=== PATIENT | female | born 1945 | race Caucasian/White ===

== ENCOUNTER 2021-12-06 09:31 | Outpatient (REF) | payer MEDICARE, SELFPAY ==
[2021-12-06 10:21] LABS: Basophils Percent Auto 0.4 % (0-2); Eosinophils Absolute Auto 0.2 X10*3/uL (0.0-0.4); Eosinophils Percent Auto 1.8 % (0-4); Hematocrit 43.8 % (37.0-47.0); Hemoglobin 14.7 g/dl (12.0-16.0); Imm Gran Abs Auto 0.02 X10*3/uL (0.00-0.03); Imm Gran Pct Auto 0.2 % (0.0-0.4); Lymphocytes Absolute Auto 3.9 X10*3/uL (1.2-4.9); Lymphocytes Percent Auto 43.5 % (20-40); MANUAL DIFF FLAG NO; Mean Corpuscular HGB Conc 33.6 g/dl (31.0-35.0); Mean Corpuscular Hemoglobin 31.4 pg (27.0-33.0); Mean Corpuscular Volume 93.6 fL (80.0-98.0); Mean Platelet Volume 10.8 fL (9.4-12.3); Monocytes Absolute Auto 0.9 X10*3/uL (0.1-1.2); Monocytes Percent Auto 9.6 % (2-11); Neutrophils Percent Auto 44.5 % (45-73); Platelet Count 321 X10*3/uL (160-400); Red Blood Count 4.68 X10*6/uL (4.20-5.50); Red Cell Distribution Width 12.3 % (11.0-16.0)
[2021-12-06 10:46] LABS: Estimated Average Glucose 189 mg/dL; Hemoglobin A1c % 8.2 %
[2021-12-06 10:57] LABS: Alanine Aminotransferase 21 U/L (0-31); Albumin Level 3.8 g/dL (3.5-5.0); Alkaline Phosphatase 112 U/L (39-117); Anion Gap 14 (12-20); Aspartate Amino Transferase 23 U/L (5-31); Bilirubin Total 0.4 mg/dL (0.0-1.0); Blood Urea Nitrogen 21 mg/dL (9-16); Carbon Dioxide 25 mmol/L (22-29); Chloride 104 mmol/L (96-108); Cholesterol 154 mg/dL; Estimated Glomerular Filt Rate 53; Glucose Random 156 mg/dL (60-115); HDL Cholesterol 51 mg/dL; LDL Cholesterol Calculated 68 mg/dl; Potassium 4.4 mmol/L (3.3-5.1); Sodium 139 mmol/L (135-145); Triglycerides 175 mg/dL
[2021-12-06 11:31] LABS: Vitamin B12 322 pg/mL (200-900)
== END 2021-12-06 09:32 | disposition home or self-care (01) ==
LOC: HO.10HDL 09:31
PROVIDERS: Visit Provider Internal Medicine
DX: E11.9 Type 2 diabetes mellitus without complications (principal); E78.00 Pure hypercholesterolemia, unspecified; I10 Essential (primary) hypertension; L30.0 Nummular dermatitis
CPT/HCPCS: 36415; 80053; 80061; 82043; 82607; 83036; 85025

== ENCOUNTER 2022-07-05 07:03 | Outpatient (REF) | payer MEDICARE, SELFPAY ==
[2022-07-05 11:51] LABS: Estimated Average Glucose 192 mg/dL; Hemoglobin A1c % 8.3 %
[2022-07-05 12:05] LABS: Alanine Aminotransferase 14 U/L (0-31); Albumin Level 3.8 g/dL (3.5-5.0); Alkaline Phosphatase 115 U/L (39-117); Anion Gap 16 (12-20); Aspartate Amino Transferase 15 U/L (5-31); Bilirubin Total 0.3 mg/dL (0.0-1.0); Blood Urea Nitrogen 27 mg/dL (9-16); Calcium 9.7 mg/dL (8.4-10.2); Carbon Dioxide 23 mmol/L (22-29); Chloride 103 mmol/L (96-108); Estimated Glomerular Filt Rate 50; Glucose Random 144 mg/dL (60-115); Potassium 3.9 mmol/L (3.3-5.1); Sodium 138 mmol/L (135-145); Total Protein 6.9 g/dL (6.5-8.0)
[2022-07-05 12:33] LABS: Creatinine Urine 114.46 mg/dL; Microalbum/Creatinine Ratio Ur 31.4 ug/mg cr
== END 2022-07-05 07:04 | disposition home or self-care (01) ==
LOC: HO.HMGCLDS 07:03
PROVIDERS: PCP Internal Medicine; Visit Provider Internal Medicine
DX: I12.9 Hypertensive chronic kidney disease with stage 1 through stage 4 chronic kidney disease, or unspecified chronic kidney disease (principal); E11.22 Type 2 diabetes mellitus with diabetic chronic kidney disease; E11.65 Type 2 diabetes mellitus with hyperglycemia; E78.00 Pure hypercholesterolemia, unspecified; N18.9 Chronic kidney disease, unspecified; Z90.5 Acquired absence of kidney
CPT/HCPCS: 36415; 80053; 82043; 83036

== ENCOUNTER 2023-01-03 10:13 | Outpatient (REF) | payer MEDICARE, SELFPAY ==
[2023-01-03 11:40] LABS: Alanine Aminotransferase 24 U/L (0-31); Albumin Level 3.9 g/dL (3.5-5.0); Alkaline Phosphatase 127 U/L (39-117); Anion Gap 13 (12-20); Aspartate Amino Transferase 30 U/L (5-31); Bilirubin Total 0.5 mg/dL (0.0-1.0); Blood Urea Nitrogen 21 mg/dL (9-16); Carbon Dioxide 26 mmol/L (22-29); Chloride 102 mmol/L (96-108); Estimated Glomerular Filt Rate 58; Glucose Random 178 mg/dL (60-115); Potassium 4.3 mmol/L (3.3-5.1); Sodium 137 mmol/L (135-145); Total Protein 6.9 g/dL (6.5-8.0)
[2023-01-03 11:59] LABS: Estimated Average Glucose 226 mg/dL; Hemoglobin A1c % 9.5 %
== END 2023-01-03 10:14 | disposition home or self-care (01) ==
LOC: HO.HMGCLDS 10:13
PROVIDERS: PCP Internal Medicine; Visit Provider Internal Medicine
DX: E11.65 Type 2 diabetes mellitus with hyperglycemia (principal); E11.22 Type 2 diabetes mellitus with diabetic chronic kidney disease; I12.9 Hypertensive chronic kidney disease with stage 1 through stage 4 chronic kidney disease, or unspecified chronic kidney disease; N18.9 Chronic kidney disease, unspecified; R80.8 Other proteinuria
CPT/HCPCS: 36415; 80053; 83036

== ENCOUNTER 2023-06-13 07:41 | Outpatient (REF) | payer MEDICARE, SELFPAY ==
[2023-06-13 11:28] LABS: MANUAL DIFF FLAG NO
[2023-06-13 11:35] LABS: Basophils Percent Auto 0.4 % (0-2); Eosinophils Absolute Auto 0.2 X10*3/uL (0.0-0.4); Eosinophils Percent Auto 1.5 % (0-4); Hematocrit 42.2 % (37.0-47.0); Hemoglobin 14.1 g/dl (12.0-16.0); Imm Gran Abs Auto 0.04 X10*3/uL (0.00-0.03); Imm Gran Pct Auto 0.4 % (0.0-0.4); Lymphocytes Absolute Auto 4.4 X10*3/uL (1.2-4.9); Lymphocytes Percent Auto 40.1 % (20-40); Mean Corpuscular HGB Conc 33.4 g/dl (31.0-35.0); Mean Corpuscular Hemoglobin 30.3 pg (27.0-33.0); Mean Corpuscular Volume 90.6 fL (80.0-98.0); Monocytes Absolute Auto 0.9 X10*3/uL (0.1-1.2); Monocytes Percent Auto 8.4 % (2-11); Neutrophils Absolute Auto 5.4 x10*3/uL (2.0-8.3); Neutrophils Percent Auto 49.2 % (45-73); Platelet Count 398 X10*3/uL (160-400); Red Blood Count 4.66 X10*6/uL (4.20-5.50); Red Cell Distribution Width 12.2 % (11.0-16.0); White Blood Count 10.9 X10*3/uL (4.8-10.8)
[2023-06-13 11:48] LABS: Estimated Average Glucose 223 mg/dL; Hemoglobin A1c % 9.4 %
[2023-06-13 12:19] LABS: Creatinine Urine 90.99 mg/dL; Microalbum/Creatinine Ratio Ur 46.1 ug/mg cr
[2023-06-13 12:25] LABS: Alanine Aminotransferase 16 U/L (0-31); Albumin Level 3.8 g/dL (3.5-5.0); Alkaline Phosphatase 124 U/L (39-117); Anion Gap 18 (12-20); Aspartate Amino Transferase 15 U/L (5-31); Bilirubin Total 0.3 mg/dL (0.0-1.0); Blood Urea Nitrogen 28 mg/dL (9-16); Calcium 10.3 mg/dL (8.4-10.2); Carbon Dioxide 20 mmol/L (22-29); Chloride 106 mmol/L (96-108); Cholesterol 140 mg/dL; Estimated Glomerular Filt Rate 56; Glucose Random 163 mg/dL (60-115); HDL Cholesterol 51 mg/dL; LDL Cholesterol Calculated 58 mg/dl; Potassium 4.1 mmol/L (3.3-5.1); Sodium 140 mmol/L (135-145); Total Protein 7.6 g/dL (6.5-8.0); Triglycerides 155 mg/dL
== END 2023-06-13 07:42 | disposition home or self-care (01) ==
LOC: HO.HMGCLDS 07:41
PROVIDERS: PCP Internal Medicine; Visit Provider Internal Medicine
DX: B37.2 Candidiasis of skin and nail (principal); E11.65 Type 2 diabetes mellitus with hyperglycemia; E78.00 Pure hypercholesterolemia, unspecified; I10 Essential (primary) hypertension; R80.8 Other proteinuria
CPT/HCPCS: 36415; 80053; 80061; 82043; 83036; 85025

== ENCOUNTER 2023-10-11 09:21 | Outpatient (AMB) | payer MEDICARE, SELFPAY ==
--- NOTE | 2023-10-11 09:28 | A.OFFVIS_ITS ---
Intake Vital Signs 10/11/23 09:33 Height 5 ft Weight 204 lb BMI 39.8 Handedness Right Intake Visit Reasons: New pt - B/L shoulder pain Intake Note: Akila is a 78 year old right hand dominant female who presents today as a new patient for a evaluation of bilateral shoulder pain. Patient reports her bilateral shoulder pain has been going on since the end of July She states that her right side is worse than the left. Patient reports that her pain starts from her shoulders down to her tips of her fingers. Viktoria numbness and tingling in her hands. Hx of bilateral shoulder injections with no relief. Allergies iodine [Iodine] Allergy (Mild, Verified 10/11/23 09:32) HIVES HPI HPI Comments History of Present Illness Details Patient admits to shoulder and elbow pain, hand symptoms. But denies hip pain. Bilateral shoulder, right worse, goes down to upper arm, can't lay down on side due to pain. Started last week of July. Denies falls or inciting injuries. Limited ROM because of pain. Does not think there is a separate elbow pain, rather a referral from shoulder, down to hands. Describes hand joint pain. Needs to hands to hold a glass and difficulty opening bottles. No numbness. Has had flare up like these before but would resolve spontaneously. Perhaps 3 times a year. History of DM, HTN, nephrectomy (congenital kidney disease per patient). She had prednisone recently but raised sugars high. Last blood sugar check at home was 170s. Uses walker nowadays because of difficulty holding a cane with shoulder pain. Has been using cane for past 6 years. Family history of RA (mom)? Treatment done so far: tylenol meloxicam - no relief [facility] Medical History (Updated 10/11/23 @ 10:05 by Lori Clark MD) Hand pain Shoulder pain Social History (Updated 10/11/23 @ 09:33 by Elkin Cope) Alcohol intake: never Patient Tobacco Use Status: Never used Tobacco Review of Systems Const All systems reviewed & are unremarkable except as noted in HPI and below Physical Exam Vital Signs: BMI result Body Mass Index 39.8 Constitutional: Patient appears to be in no acute distress, well nourished and well developed. MSK: Inspection reveals appropriate head and neck positioning. No pain with palpation over the neck musculature. Cervical ROM was full. Spurling's sign negative. Very limited bilateral shoulder flexion due to pain. Empty can test is unable to do. Drop arm test is unable to do. Speed's test is unable to do. Neer's test is unable to do. Hawkin's test is positive bilateral. Tender on upper arm and subacromial areas. Tender on bilateral CMC joints. Question positive Aurelio test bilateral. Negative carpal compression. No finger swelling noted. Neurological: Gustafson?s negative bilaterally. Needs walker. Results Reviewed Results Reviewed: I reviewed records from the following: PCP Assessment & Plan Assessment & Plan (1) Shoulder pain: Code(s): M25.519 - Pain in unspecified shoulder Qualifiers: Chronicity: chronic Laterality: bilateral Qualified Code(s): M25.511 - Pain in right shoulder; M25.512 - Pain in left shoulder; G89.29 - Other chronic pain (2) Hand pain: Code(s): M79.643 - Pain in unspecified hand Qualifiers: Laterality: bilateral Qualified Code(s): M79.641 - Pain in right hand; M79.642 - Pain in left hand Plan Suspect arthritis but ruling out systemic arthritis, rule out PMR. Sending for bilateral shoulder x-rays and bilateral hand x-rays today. Sending for lab work: ESR, CRP, TEMITOPE, RF. Maintain use of Voltaren gel or meloxicam prescribed by PCP for now. Cautioned to be careful with steroids, given poorly controlled DM. Assessment and plan discussed with patient, and patient was agreeable. All questions were answered thoroughly. Follow-up after results. Lori Clark MD, ALVARO Board Certified, [place] Board of Physical Medicine and Rehabilitation (ABPMR) Board Certified, [place] Board of Electrodiagnostic Medicine (ABEM) Orders: Orders XR shoulder LT min 2V Today M25.519 - Pain in unspecified shoulder, M79.643 - Pain in unspecified hand XR hand LT min 3V Today M25.519 - Pain in unspecified shoulder, M79.643 - Pain in unspecified hand TEMITOPE Reflex Titer and Pattern Today M25.519 - Pain in unspecified shoulder, M79.643 - Pain in unspecified hand Erythrocyte Sedimentation Rate Today M25.519 - Pain in unspecified shoulder, M79.643 - Pain in unspecified hand XR shoulder RT min 2V Today M25.519 - Pain in unspecified shoulder, M79.643 - Pain in unspecified hand XR hand RT min 3V Today M25.519 - Pain in unspecified shoulder, M79.643 - Pain in unspecified hand CRP High Sensitivity Today M25.519 - Pain in unspecified shoulder, M79.643 - Pain in unspecified hand Rheumatoid Factor Today M25.519 - Pain in unspecified shoulder, M79.643 - Pain in unspecified hand Coding Level of Care Code New Pt Level 4 (21347) Diagnoses Chronic pain of both shoulders M25.511; M25.512; G89.29 Chronicity: chronic Laterality: bilateral Pain in both hands M79.641; M79.642 Laterality: bilateral
[2023-10-11 09:33] VITALS: BMI 39.8
== END 2023-10-11 10:20 | disposition home or self-care (01) ==
PROVIDERS: PCP Internal Medicine; Visit Provider Physical Medicine & Rehabilitation
DX: M25.511 Pain in right shoulder (principal); M25.512 Pain in left shoulder; G89.29 Other chronic pain; M79.641 Pain in right hand; M79.642 Pain in left hand
CPT/HCPCS: 99204

== ENCOUNTER 2023-10-11 09:21 | Outpatient (REF) | payer MEDICARE, SELFPAY ==
--- NOTE | ~2023-10-11 | XR_ITS ---
EXAMINATION: XR SHOULDER, LEFT CLINICAL INFORMATION: Pain. COMPARISON: None available. TECHNIQUE: AP neutral and scapula Y views of the left shoulder are submitted. FINDINGS: There is bony demineralization. The glenohumeral joint is intact and shows marked osteoarthritic change. The acromioclavicular and coracoclavicular intervals are normal. No fracture or dislocation is seen. There are coarse atherosclerotic calcifications of the left rotator cuff insertion. No left pneumothorax is seen. XR/XR shoulder LT min 2V IMPRESSION: 1. There is marked osteoarthritic change of the left glenohumeral joint, and mild osteoarthritic change is seen of the left clavicular joint. 2. There is marked calcific tendinitis of the left rotator cuff insertion.
--- NOTE | ~2023-10-11 | XR_ITS ---
EXAMINATION: XR SHOULDER, RIGHT CLINICAL INFORMATION: Pain. COMPARISON: None available. TECHNIQUE: AP neutral and scapular Y views of the right shoulder are submitted. FINDINGS: There is bony demineralization. The glenohumeral joint is intact and shows moderately severe osteoarthritic change. The acromioclavicular and coracoclavicular intervals are normal. There is mild to moderate osteoarthritic change of the acromioclavicular joint. No fracture or dislocation is seen. No soft tissue calcification or foreign body is noted. There is no right pneumothorax. XR/XR shoulder RT min 2V IMPRESSION: There is moderately severe osteoarthritic change of the right glenohumeral joint, and mild to moderate osteoarthritic change is seen of the right acromioclavicular joint.
--- NOTE | ~2023-10-11 | XR_ITS ---
EXAMINATION: XR HAND, LEFT CLINICAL INFORMATION: Pain. COMPARISON: None available. TECHNIQUE: PA, lateral, and oblique views of the left hand. FINDINGS: There is bony demineralization. Bony alignment is normal. No fracture or dislocation is seen. There is very mild osteoarthritic change of the third and fourth distal interphalangeal joints. A small periarticular calcification is seen of the fourth distal interphalangeal joint. No fracture or dislocation is seen. A small sclerotic bone island is noted within the head of the proximal phalanx of the thumb. The proximal and distal carpal rows are intact. There is no focal soft tissue swelling, gas or foreign body. XR/XR hand LT min 3V IMPRESSION: 1. There is no fracture or dislocation. 2. There is very mild osteoarthritic change of the left third and fourth distal interphalangeal joints.
--- NOTE | ~2023-10-11 | XR_ITS ---
EXAMINATION: XR HAND, RIGHT CLINICAL INFORMATION: Pain. COMPARISON: None available. TECHNIQUE: PA, lateral, and oblique views of the right hand. FINDINGS: There is bony demineralization. There is mild osteoarthritic change of the third distal interphalangeal joint. There is mild osteoarthritic change of the first carpometacarpal joint. No fracture or dislocation is seen. There is no abnormal bone erosion. A 3 mm curvilinear calcification is seen in the soft tissues of the lateral wrist. No focal soft tissue swelling or gas is seen. XR/XR hand RT min 3V IMPRESSION: 1. There is mild osteoarthritic change of the third distal interphalangeal joint and of the first carpometacarpal joint. 2. A 3 mm curvilinear calcification is seen in the soft tissues of the lateral wrist.
== END 2023-10-11 09:22 | disposition home or self-care (01) ==
LOC: HO.HOSX 09:21
PROVIDERS: PCP Internal Medicine; Visit Provider Physical Medicine & Rehabilitation
DX: M25.511 Pain in right shoulder (principal); M25.512 Pain in left shoulder; M79.641 Pain in right hand; M79.642 Pain in left hand; G89.29 Other chronic pain
CPT/HCPCS: 73030; 73130; 99202

== ENCOUNTER 2023-10-11 10:52 | Outpatient (REF) | payer MEDICARE, SELFPAY ==
[2023-10-11 13:58] LABS: Rheumatoid Factor < 13.0 IU/mL (<15.0)
[2023-10-11 14:13] LABS: Erythrocyte Sedimentation Rate 67 MM/HR (0-20)
[2023-10-12 16:04] LABS: CRP High Sensitivity >10.0 mg/L
[2023-10-16 15:38] LABS: Anti Nuclear Antibody Screen POSITIVE (NEGATIVE); Anti Nuclear Antibody Titer 1:40 titer
== END 2023-10-11 10:53 | disposition home or self-care (01) ==
LOC: HO.10HDL 10:52
PROVIDERS: Visit Provider Physical Medicine & Rehabilitation
DX: M25.519 Pain in unspecified shoulder (principal); M79.643 Pain in unspecified hand
CPT/HCPCS: 36415; 85652; 86038; 86039; 86141; 86431

== ENCOUNTER 2023-10-18 15:09 | Outpatient (AMB) | payer MEDICARE, SELFPAY ==
--- NOTE | 2023-10-18 15:23 | A.OFFVIS_ITS ---
Intake Vital Signs 10/18/23 15:25 Height 5 ft Weight 191 lb 2.252 oz BMI 37.3 BP 128/70 Blood Pressure Location Rt brachial Position Sitting Pulse 72 Pulse Source Pulse Oximeter Temp 97 F Temp Source Skin Pulse Oximetry (%) 98 Oxygen Delivery Method Room Air Intake Visit Reasons: Polymyalgia rheumatica Intake Note: New patient internally referred to us present today for PMR. ESR, CRP, TEMITOPE done. 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 Wilburn 78 yo F was referred by Ortho for evaluation of possible PMR. She has elevated ESR 66, CRP hs 10. Patient admits to shoulder and elbow pain, hand symptoms. But denies hip pain. She was active and able to do her ADLs prior to this onset 3 months ago. Bilateral shoulder, right worse, goes down to upper arm, can't lay down on side due to pain. Started last week of July 2023. Denies falls or inciting injuries. Limited ROM in upper extremities because of pain Describes hand joint pain. Needs both hands to hold a glass and difficulty opening bottles. denies numbness. Has had flare up like these before but would resolve spontaneously. Perhaps 3 times a year. History of DM, HTN, nephrectomy (congenital kidney disease per patient). She had prednisone recently but raised sugars high. Last blood sugar check at home was 170s. Uses walker now because of difficulty holding a cane with shoulder pain. Has been using cane for past 6 years. Family history of RA (mom)? Treatment done so far: tylenol meloxicam - no relief Patient denies symptoms of Temporal Arteritis and connective tissue Disease to include but not limited to headaches, altered vision at onset of the muscle pain, rashes, sun sensitivity and fatigue. She denies Raynaud's, joint swelling and redness. She has no concerns for chronic diarrhea, blood or mucus on stool. [facility] Medical History (Updated 10/19/23 @ 10:21 by LALA Jcakson-DOUG) Primary osteoarthritis involving multiple joints PMR (polymyalgia rheumatica) Diabetes mellitus Kidney disease HTN (hypertension) Hand pain Shoulder pain Surgical History History of right nephrectomy Hx of cholecystectomy Family History (Updated 10/18/23 @ 15:31 by RANJITH Scott) Father HTN (hypertension) Mother HTN (hypertension) Kidney disease Arthritis Other CVA (cerebral vascular accident) Throat cancer Social History Alcohol intake: never Patient Tobacco Use Status: Never used Tobacco Review of Systems Const All systems reviewed & are unremarkable except as noted in HPI and below Physical Exam Vital Signs: Last Vital Signs Temp 97 F 10/18/23 15:25 Pulse 72 10/18/23 15:25 BP 128/70 10/18/23 15:25 Pulse Ox 98 10/18/23 15:25 Oxygen Delivery Method Room Air 10/18/23 15:25 BMI result Body Mass Index 37.3 APPEARANCE: Patient in no acute distress, groomed and well nourished EYES no redness, pupils equal and reactive to light, eyelids normal EARS:? External ear normal, canal clear and tympanic membrane normal. NOSE/SINUS:? Airflow through both nares, no nasal discharge, no bleeding THROAT:? Oral mucosa moist, no ulcerations NECK:? No thyromegaly or masses, no adenopathy, trachea midline. HEART:? Regulrar rhythm, S1-S2 heard, no murmurs, rubs or gallops. LUNG:? Clear to percussion and auscultation; diminished in the bases EXTREMITIES:? No edema, no calf tenderness, normal peripheral pulses. NEURO:? Oriented and alert x3.? No focal weakness.? Reflexes symmetric.? Walks with a rolling walker SKIN:? There are no skin lesions evident. No objective signs of Raynaud's phenomenon. JOINT EXAM: Cervical Spine:.? Full range of motion without pain; no tenderness. Thoracic Spine:.? No scoliosis.? No tenderness on palpation. Lumbar Spine:.? Alignment normal.? no tenderness. Chest Wall:.? No tenderness, swelling, increased warmth or erythema. Hands:.? Normal range of motion with stiffness and pain but without swelling, increased warmth or erythema. 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 Tender on bilateral CMC joints. Wrists:.? Normal pain-free range of motion without swelling, increased warmth or erythema. Mild tenderness Elbows:. Normal pain-free range of motion without tenderness, swelling, increased warmth or erythema. Shoulders:.?? Decreased range of motion with pain - unable to lift hands above head - 30 degrees. Tenderness, weakness, but swelling, increased warmth or erythema. Tender on upper arm and subacromial areas. Hip bursa:.? tenderness to left bursa, bilateral thighs, no tenderness to glutes Knees:.?? Normal range of motion with mild pain and some bursa tenderness, but swelling, increased warmth or erythema.? There is no effusion or crepitation Ankles:.? Normal pain-free range of motion without tenderness, swelling, increased warmth or erythema. Feet:.? Normal pain-free range of motion without tenderness, swelling, increased warmth or erythema. . Results Reviewed Results Reviewed: EXAMINATION: XR SHOULDER, RIGHT CLINICAL INFORMATION: Pain. COMPARISON: None available. TECHNIQUE: AP neutral and scapular Y views of the right shoulder are submitted. FINDINGS: There is bony demineralization. The glenohumeral joint is intact and shows moderately severe osteoarthritic change. The acromioclavicular and coracoclavicular intervals are normal. There is mild to moderate osteoarthritic change of the acromioclavicular joint. No fracture or dislocation is seen. No soft tissue calcification or foreign body is noted. There is no right pneumothorax. XR/XR shoulder RT min 2V IMPRESSION: There is moderately severe osteoarthritic change of the right glenohumeral joint, and mild to moderate osteoarthritic change is seen of the right acromioclavicular joint. EXAMINATION: XR SHOULDER, LEFT CLINICAL INFORMATION: Pain. COMPARISON: None available. TECHNIQUE: AP neutral and scapula Y views of the left shoulder are submitted. FINDINGS: There is bony demineralization. The glenohumeral joint is intact and shows marked osteoarthritic change. The acromioclavicular and coracoclavicular intervals are normal. No fracture or dislocation is seen. There are coarse atherosclerotic calcifications of the left rotator cuff insertion. No left pneumothorax is seen. XR/XR shoulder LT min 2V IMPRESSION: 1. There is marked osteoarthritic change of the left glenohumeral joint, and mild osteoarthritic change is seen of the left clavicular joint. 2. There is marked calcific tendinitis of the left rotator cuff insertion. EXAMINATION: XR HAND, RIGHT CLINICAL INFORMATION: Pain. COMPARISON: None available. TECHNIQUE: PA, lateral, and oblique views of the right hand. FINDINGS: There is bony demineralization. There is mild osteoarthritic change of the third distal interphalangeal joint. There is mild osteoarthritic change of the first carpometacarpal joint. No fracture or dislocation is seen. There is no abnormal bone erosion. A 3 mm curvilinear calcification is seen in the soft tissues of the lateral wrist. No focal soft tissue swelling or gas is seen. XR/XR hand RT min 3V IMPRESSION: 1. There is mild osteoarthritic change of the third distal interphalangeal joint and of the first carpometacarpal joint. 2. A 3 mm curvilinear calcification is seen in the soft tissues of the lateral wrist. EXAMINATION: XR HAND, LEFT CLINICAL INFORMATION: Pain. COMPARISON: None available. TECHNIQUE: PA, lateral, and oblique views of the left hand. FINDINGS: There is bony demineralization. Bony alignment is normal. No fracture or dislocation is seen. There is very mild osteoarthritic change of the third and fourth distal interphalangeal joints. A small periarticular calcification is seen of the fourth distal interphalangeal joint. No fracture or dislocation is seen. A small sclerotic bone island is noted within the head of the proximal phalanx of the thumb. The proximal and distal carpal rows are intact. There is no focal soft tissue swelling, gas or foreign body. XR/XR hand LT min 3V IMPRESSION: 1. There is no fracture or dislocation. 2. There is very mild osteoarthritic change of the left third and fourth distal interphalangeal joints. Laboratory Tests 10/11/23 11:00 ESR 67 H C-React Prot High Sens >10.0 H Rheumatoid Factor < 13.0 TEMITOPE Screen POSITIVE A TEMITOPE Titer 1:40 H TEMITOPE Pattern A Assessment & Plan Assessment & Plan (1) PMR (polymyalgia rheumatica): Code(s): M35.3 - Polymyalgia rheumatica (2) Type 2 diabetes mellitus with hyperglycemia: Code(s): E11.65 - Type 2 diabetes mellitus with hyperglycemia Qualifiers: Diabetes mellitus intermediate teacher insulin use: without senior living use Qualified Code(s): E11.65 - Type 2 diabetes mellitus with hyperglycemia (3) Calcific shoulder tendinitis: Code(s): M75.30 - Calcific tendinitis of unspecified shoulder Qualifiers: Laterality: bilateral Qualified Code(s): M75.31 - Calcific tendinitis of right shoulder; M75.32 - Calcific tendinitis of left shoulder (4) Primary osteoarthritis involving multiple joints: Code(s): M15.9 - Polyosteoarthritis, unspecified Plan #PMR: After careful evaluation af patient, diagnostic and records, I reasonable belief the patient has PMR. Her clinical picture includes, sudden onset of pain and fatigue to large muscles with use and to palpation, elevated acute phase reactants (ESR/CRP), thigh weakness and increased challenges with sitting and standing, and her significant therapeutic response to Prednisone. I did not observe synovitis, swelling or erythema to hands or other joints. She denies any known associated events at onset or any personal history of malignancy. PMR can sometimes happen in the context of occult malignancy. I will obtain updated ESR/CRP in one month. If they are resolved, we will continue with taper, else maintain or increase the dose. PMR can take up to 1 year to be effectively treated. #T2DM: We will need to be careful with Prednisone, due to the DM. She reports that her sugars have reached 400 while on the short course of prednisone. She is currently on Glipizide. I think it is reasonable to add a Sliding scale insulin in the beginning of treatment on the higher doses to mitigate this effect. I discuss the potential duration of therapy with patient and advised that I will try to taper down as quickly as possible while maintaining therapeutic levels. #OA/Calcific Tendinitis/Dimineralized bone: Per x-ray reports there is OA in bilateral shoulder and hands, calcific tendinitis in the left shoulder and bone demineralization to both shoulders and both hands. Severe OA can has its associated pain which the patient has been experiencing but the onset of PMR made the movement more difficult. There is also calcific tendinitis in the left shoulders which can be a contributory factor to the left shoulder pain - calcific tendinitis s best addressed with cortisone injections and PT. The bone demineralization can be caused by a systemic inflammatory arthritis such as RA. If tapering prednisone becomes challenging with a persistent return of symptoms when lowering doses, we will have to consider that the residual pain made be caused by these other processes and adjust treatment course as appropriate. Assessment and plan discussed with patient, and patient was agreeable. All questions were answered thoroughly.. Follow-up in clinic in 2 months - Patient will obtain updated labs in 1 month. Orders: Orders Complete Blood Count Auto Diff 1 Month M35.3 - Polymyalgia rheumatica Uric Acid 1 Month M35.3 - Polymyalgia rheumatica, M79.643 - Pain in unspecified hand Cyclic Citrullinated Peptide 1 Month M35.3 - Polymyalgia rheumatica, M79.643 - Pain in unspecified hand Erythrocyte Sedimentation Rate 1 Month M35.3 - Polymyalgia rheumatica C Reactive Protein 1 Month M35.3 - Polymyalgia rheumatica Comprehensive Met. Panel 1 Month M35.3 - Polymyalgia rheumatica, M79.643 - Pain in unspecified hand Medications: New prednisone Start in second month - Combine with one 5 mg Tablet for taper Take 4 tablets per day for 1 month 120 tabs 0RF prednisone Take 2 tablets per day for 1 month then take 1 tablet per day for 1 month 90 tabs 0RF M35.3 - Polymyalgia rheumatica Coding Level of Care Code Est Pt Level 4 (80863) Diagnoses PMR (polymyalgia rheumatica) M35.3 Type 2 diabetes mellitus with hyperglycemia, without long-term current use of insulin E11.65 Diabetes mellitus intermediate teacher insulin use: without senior living use Calcific tendinitis of both shoulders M75.31; M75.32 Laterality: bilateral Primary osteoarthritis involving multiple joints M15.9
[2023-10-18 15:25] VITALS: BP 128/70; PULSE 72; TEMP 36.1; O2SAT 98; BMI 37.3
== END 2023-10-18 16:04 | disposition home or self-care (01) ==
PROVIDERS: PCP Internal Medicine; Visit Provider Nurse Practitioner Family
DX: M35.3 Polymyalgia rheumatica (principal); E11.65 Type 2 diabetes mellitus with hyperglycemia; M75.31 Calcific tendinitis of right shoulder; M75.32 Calcific tendinitis of left shoulder; M15.9 Polyosteoarthritis, unspecified
CPT/HCPCS: 99214

== ENCOUNTER → 2023-10-18 15:09 | Outpatient (BNVA) | payer MEDICARE, SELFPAY | PROVIDERS: PCP Internal Medicine; Visit Provider Nurse Practitioner Family | DX: M35.3 Polymyalgia rheumatica (principal); M75.31 Calcific tendinitis of right shoulder; M15.9 Polyosteoarthritis, unspecified; M75.32 Calcific tendinitis of left shoulder; E11.65 Type 2 diabetes mellitus with hyperglycemia | CPT/HCPCS: 99212 ==

== ENCOUNTER 2023-11-17 07:43 | Outpatient (REF) | payer MEDICARE, SELFPAY ==
[2023-11-25 13:12] LABS: Cyclic Citrullinated Peptide <16 UNITS
== END 2023-11-17 07:44 | disposition home or self-care (01) ==
LOC: HO.HMGCLDS 07:43
PROVIDERS: PCP Internal Medicine; Visit Provider Nurse Practitioner Family
DX: M79.643 Pain in unspecified hand (principal); M35.3 Polymyalgia rheumatica
CPT/HCPCS: 36415; 80053; 84550; 85025; 85652; 86140; 86200

== ENCOUNTER 2023-12-20 09:13 | Outpatient (AMB) | payer MEDICARE, SELFPAY ==
--- NOTE | 2023-12-20 09:20 | A.OFFVIS_ITS ---
Intake Vital Signs 12/20/23 09:21 Height 5 ft Weight 189 lb 2.506 oz BMI 36.9 BP 140/78 H Blood Pressure Location Lt brachial Position Sitting Pulse 68 Pulse Source Pulse Oximeter Pulse Oximetry (%) 98 Oxygen Delivery Method Room Air Intake Visit Reasons: PMR Intake Note: Patient last seen 10/18/23 by Caroline, presents today for follow up and test res ults. Reports increased joint pain since being off the prednsione. End Maker Required: No Accompanied by: Self / Same As Patient Allergies iodine [Iodine] Allergy (Mild, Verified 12/20/23 09:25) HIVES metformin Adverse Reaction (Verified 12/20/23 09:25) Diarrhea Medication List - Last Reconciled 12/20/23 by Thania Velazquez, [facility]- amlodipine 10 mg PO DAILY aspirin 81 mg PO DAILY glipizide 10 mg PO BID losartan-hydrochlorothiazide 50-12.5 mg 1 tab PO DAILY metoprolol tartrate 100 mg PO BID prednisone Start in second month - Combine with one 5 mg Tablet for taper Take 4 tablets per day for 1 month prednisone Take 1 tablet per day in combination with the one mg tablets for taper. HPI HPI Comments History of Present Illness Details Ms. Akila Dougherty yo F here for follow-up of PMR. She has been on Prednisone since October 2023. She was feeling better at 10 mg per day x 1 month. She then dropped to 5mg per day and the pain returns. There was a misunderstanding with the dosing. Per patient, the Pharmacy did not give her the one mg tablets that would enable her to taper down to 9mg. The pharmacy did endorse that the patient received the Prednisone one mg tablets. The patient says no and she wants to feel better so why would she not take it if she had them. The pharmacy refused to issue the tablets without a second script. When asked why did she not call back the office, she said she decided to wait until her appt to resolve. Initial History: Ms. Akila Dougherty yo F was referred by Ortho for evaluation of possible PMR. She has elevated ESR 66, CRP hs 10. Patient admits to shoulder and elbow pain, hand symptoms. But denies hip pain. She was active and able to do her ADLs prior to this onset 3 months ago. Bilateral shoulder, right worse, goes down to upper arm, can't lay down on side due to pain. Started last week of July 2023. Denies falls or inciting injuries. Limited ROM in upper extremities because of pain Describes hand joint pain. Needs both hands to hold a glass and difficulty opening bottles. denies numbness. Has had flare up like these before but would resolve spontaneously. Perhaps 3 times a year. History of DM, HTN, nephrectomy (congenital kidney disease per patient). She had prednisone recently but raised sugars high. Last blood sugar check at home was 170s. Uses walker now because of difficulty holding a cane with shoulder pain. Has been using cane for past 6 years. Family history of RA (mom)? Treatment done so far: tylenol meloxicam - no relief Patient denies symptoms of Temporal Arteritis and connective tissue Disease to include but not limited to headaches, altered vision at onset of the muscle pain, rashes, sun sensitivity and fatigue. She denies Raynaud's, joint swelling and redness. She has no concerns for chronic diarrhea, blood or mucus on stool. [facility] Medical History (Updated 10/19/23 @ 10:21 by Thania Velazquez [facility]) Primary osteoarthritis involving multiple joints PMR (polymyalgia rheumatica) Diabetes mellitus Kidney disease HTN (hypertension) Hand pain Shoulder pain Surgical History History of right nephrectomy Hx of cholecystectomy Family History (Updated 12/20/23 @ 09:26 by ROSE Interiano) Father HTN (hypertension) Mother HTN (hypertension) Kidney disease Arthritis Other CVA (cerebral vascular accident) Throat cancer Social History Alcohol intake: never Patient Tobacco Use Status: Never used Tobacco Review of Systems Const All systems reviewed & are unremarkable except as noted in HPI and below Physical Exam Vital Signs: Last Vital Signs Pulse 68 12/20/23 09:21 BP 140/78 H 12/20/23 09:21 Pulse Ox 98 12/20/23 09:21 Oxygen Delivery Method Room Air 12/20/23 09:21 BMI result Body Mass Index 36.9 APPEARANCE: Patient in no acute distress, groomed and well nourished EYES no redness, pupils equal and reactive to light, eyelids normal EARS:? External ear normal, canal clear and tympanic membrane normal. NOSE/SINUS:? Airflow through both nares, no nasal discharge, no bleeding THROAT:? Oral mucosa moist, no ulcerations NECK:? No thyromegaly or masses, no adenopathy, trachea midline. HEART:? Regulrar rhythm, S1-S2 heard, no murmurs, rubs or gallops. LUNG:? Clear to percussion and auscultation; diminished in the bases EXTREMITIES:? No edema, no calf tenderness, normal peripheral pulses. NEURO:? Oriented and alert x3.? No focal weakness.? Reflexes symmetric.? Walks with a rolling walker SKIN:? There are no skin lesions evident. No objective signs of Raynaud's phenomenon. JOINT EXAM: Cervical Spine:.? Full range of motion without pain; no tenderness. Thoracic Spine:.? No scoliosis.? No tenderness on palpation. Lumbar Spine:.? Alignment normal.? no tenderness. Chest Wall:.? No tenderness, swelling, increased warmth or erythema. Hands:.? Normal range of motion with stiffness and pain but without swelling, increased warmth or erythema. Not able to make a full fist and has a week kit assembler strength. Tender on bilateral CMC joints. Wrists:.? Normal pain-free range of motion without swelling, increased warmth or erythema. Mild tenderness Elbows:. Normal pain-free range of motion without tenderness, swelling, increased warmth or erythema. Shoulders:.?? Decreased range of motion with pain - unable to lift hands above head - 30 degrees. Tenderness, weakness, but swelling, increased warmth or erythema. Tender on upper arm and subacromial areas. Hip bursa:.? tenderness to left bursa, bilateral thighs, no tenderness to glutes Knees:.?? Normal range of motion with mild pain and some bursa tenderness, but swelling, increased warmth or erythema.? There is no effusion or crepitation Ankles:.? Normal pain-free range of motion without tenderness, swelling, increased warmth or erythema. Feet:.? Normal pain-free range of motion without tenderness, swelling, increased warmth or erythema. . Results Reviewed Results Reviewed: Laboratory Tests 11/17/23 07:51 WBC 11.6 H ESR 23 H Uric Acid 6.6 H Calcium 10.3 H C-Reactive Protein 0.89 H Laboratory Tests 11/17/23 07:51 WBC 11.6 H ESR 23 H BUN 29 H Uric Acid 6.6 H C-Reactive Protein 0.89 H Assessment & Plan Assessment & Plan (1) PMR (polymyalgia rheumatica): Code(s): M35.3 - Polymyalgia rheumatica (2) Type 2 diabetes mellitus with hyperglycemia: Code(s): E11.65 - Type 2 diabetes mellitus with hyperglycemia Qualifiers: Diabetes mellitus keno terminal operator insulin use: with skilled nursing use Qualified Code(s): E11.65 - Type 2 diabetes mellitus with hyperglycemia; Z79.4 - detention (current) use of insulin Plan #PMR: Given the mix up with the medication dosing, she has ROS and feels like she is right back at the beginning. I reiterated to the patient that is is expected because the taper was too fast. I will obtain updated ESR/CRP in one month. I reiterated to patient to be mindful, as we discussed before that the taper takes months to effectively treat and the taper will be slow at the rate of 1mg each month. I again wrote down the taper instructions for the patient. PMR can take up to 1 year to be effectively treated. She affirm understanding. Her ESR/CRP has greatly improved. We will recheck in 3 months before next visit. #T2DM: We again discussed the need to be careful with Prednisone, due to the DM. She reports that her sugars have reached 400 while on the short course of prednisone. She is currently on Glipizide. At this time we do not need to add a Sliding scale insulin but this is an option to mitigate this effect. I again discussed the potential duration of therapy with patient and advised that I will try to taper down as quickly as possible while maintaining therapeutic levels. Assessment and plan discussed with patient, and patient was agreeable. All questions were answered thoroughly.. Follow-up in clinic in 3 months - Patient will obtain updated labs in 3 month. spent 30 minutes reviewing history, evaluating patient, discussions and documenting. Orders: Orders C Reactive Protein 3 Months M35.3 - Polymyalgia rheumatica Erythrocyte Sedimentation Rate 3 Months M35.3 - Polymyalgia rheumatica Complete Blood Count Auto Diff 3 Months M35.3 - Polymyalgia rheumatica Medications: Refilled prednisone Start in second month - Combine with one 5 mg Tablet for taper Take 4 tablets per day for 1 month 120 tabs 0RF prednisone Take 1 tablet per day in combination with the one mg tablets for taper. 90 tabs 1RF M35.3 - Polymyalgia rheumatica Coding Level of Care Code Est Pt Level 4 (66058) Diagnoses PMR (polymyalgia rheumatica) M35.3 Type 2 diabetes mellitus with hyperglycemia, with long-term current use of insulin E11.65; Z79.4 Diabetes mellitus skilled nursing insulin use: with keno terminal operator use
[2023-12-20 09:21] VITALS: BP 140/78; PULSE 68; O2SAT 98; BMI 36.9
== END 2023-12-20 09:57 | disposition home or self-care (01) ==
PROVIDERS: PCP Internal Medicine; Visit Provider Nurse Practitioner Family
DX: M35.3 Polymyalgia rheumatica (principal); E11.65 Type 2 diabetes mellitus with hyperglycemia; Z79.4 Long term (current) use of insulin
CPT/HCPCS: 99214

== ENCOUNTER → 2023-12-20 09:13 | Outpatient (BNVA) | payer MEDICARE, SELFPAY | PROVIDERS: PCP Internal Medicine; Visit Provider Nurse Practitioner Family | DX: M35.3 Polymyalgia rheumatica (principal); E11.65 Type 2 diabetes mellitus with hyperglycemia; Z79.4 Long term (current) use of insulin | CPT/HCPCS: 99212 ==

== ENCOUNTER 2024-01-26 07:39 | Outpatient (REF) | payer MEDICARE, SELFPAY ==
[2024-01-26 10:54] LABS: Estimated Average Glucose 243 mg/dL; Hemoglobin A1c % 10.1 % (<6.0)
[2024-01-26 11:07] LABS: Alanine Aminotransferase 18 U/L (0-31); Albumin Level 3.6 g/dL (3.5-5.0); Alkaline Phosphatase 121 U/L (39-117); Anion Gap 13 (12-20); Aspartate Amino Transferase 16 U/L (5-31); Bilirubin Total 0.5 mg/dL (0.0-1.0); Blood Urea Nitrogen 18 mg/dL (9-16); Calcium 9.8 mg/dL (8.4-10.2); Carbon Dioxide 28 mmol/L (22-29); Chloride 104 mmol/L (96-108); Estimated Glomerular Filt Rate 50; Glucose Random 148 mg/dL (60-115); Potassium 3.5 mmol/L (3.3-5.1); Sodium 141 mmol/L (135-145); Total Protein 6.9 g/dL (6.5-8.0)
[2024-01-26 11:35] LABS: Parathyroid Hormone Intact 152.3 pg/mL (8.7-77.1)
== END 2024-01-26 07:40 | disposition home or self-care (01) ==
LOC: HO.HMGCLDS 07:39
PROVIDERS: PCP Internal Medicine; Visit Provider Internal Medicine
DX: E11.65 Type 2 diabetes mellitus with hyperglycemia (principal); E78.00 Pure hypercholesterolemia, unspecified; E83.52 Hypercalcemia; I10 Essential (primary) hypertension; R80.8 Other proteinuria
CPT/HCPCS: 36415; 80053; 82306; 83036; 83970

== ENCOUNTER 2024-05-14 06:39 | Outpatient (REF) | payer MEDICARE, SELFPAY ==
[2024-05-14 11:04] LABS: MANUAL DIFF FLAG NO
[2024-05-14 11:15] LABS: Basophils Percent Auto 0.3 % (0-2); Eosinophils Absolute Auto 0.1 X10*3/uL (0.0-0.4); Eosinophils Percent Auto 0.9 % (0-4); Hematocrit 43.9 % (37.0-47.0); Hemoglobin 14.6 g/dl (12.0-16.0); Imm Gran Abs Auto 0.05 X10*3/uL (0.00-0.03); Imm Gran Pct Auto 0.4 % (0.0-0.4); Lymphocytes Absolute Auto 3.6 X10*3/uL (1.2-4.9); Lymphocytes Percent Auto 26.7 % (20-40); Mean Corpuscular HGB Conc 33.3 g/dl (31.0-35.0); Mean Corpuscular Hemoglobin 31.2 pg (27.0-33.0); Mean Corpuscular Volume 93.8 fL (80.0-98.0); Mean Platelet Volume 10.7 fL (9.4-12.3); Monocytes Absolute Auto 1.1 X10*3/uL (0.1-1.2); Monocytes Percent Auto 8.3 % (2-11); Neutrophils Absolute Auto 8.6 x10*3/uL (2.0-8.3); Neutrophils Percent Auto 63.4 % (45-73); Platelet Count 357 X10*3/uL (160-400); Red Blood Count 4.68 X10*6/uL (4.20-5.50); Red Cell Distribution Width 13.5 % (11.0-16.0); White Blood Count 13.6 X10*3/uL (4.8-10.8)
[2024-05-14 11:33] LABS: Alanine Aminotransferase 16 U/L (0-31); Albumin Level 3.6 g/dL (3.5-5.0); Alkaline Phosphatase 123 U/L (39-117); Anion Gap 14 (12-20); Aspartate Amino Transferase 13 U/L (5-31); Bilirubin Total 0.7 mg/dL (0.0-1.0); Blood Urea Nitrogen 14 mg/dL (9-16); Calcium 9.8 mg/dL (8.4-10.2); Carbon Dioxide 27 mmol/L (22-29); Chloride 105 mmol/L (96-108); Estimated Glomerular Filt Rate > 60; Glucose Random 155 mg/dL (60-115); Potassium 3.6 mmol/L (3.3-5.1); Sodium 142 mmol/L (135-145); Total Protein 6.8 g/dL (6.5-8.0)
[2024-05-14 11:53] LABS: Estimated Average Glucose 237 mg/dL; Hemoglobin A1c % 9.9 % (<6.0)
[2024-05-14 11:55] LABS: C Reactive Protein 2.14 mg/dL (< or = 0.50)
[2024-05-14 12:01] LABS: Erythrocyte Sedimentation Rate 23 MM/HR (0-20)
== END 2024-05-14 06:40 | disposition home or self-care (01) ==
LOC: HO.HMGCLDS 06:39
PROVIDERS: PCP Internal Medicine; Referring Provider Internal Medicine; Visit Provider Nurse Practitioner Family
DX: E11.65 Type 2 diabetes mellitus with hyperglycemia (principal); I10 Essential (primary) hypertension; R80.8 Other proteinuria; M35.3 Polymyalgia rheumatica
CPT/HCPCS: 36415; 80053; 83036; 85025; 85652; 86140

== ENCOUNTER 2024-05-27 07:16 | Outpatient (REF) | payer MEDICARE, SELFPAY ==
[2024-05-27 09:00] LABS: B Type Natriuretic Peptide 368 pg/mL (<100)
[2024-05-27 10:46] LABS: Alanine Aminotransferase 19 U/L (0-31); Albumin Level 3.5 g/dL (3.5-5.0); Alkaline Phosphatase 123 U/L (39-117); Anion Gap 16 (12-20); Aspartate Amino Transferase 17 U/L (5-31); Bilirubin Total 0.6 mg/dL (0.0-1.0); Blood Urea Nitrogen 17 mg/dL (9-16); Calcium 9.3 mg/dL (8.4-10.2); Carbon Dioxide 26 mmol/L (22-29); Chloride 104 mmol/L (96-108); Estimated Glomerular Filt Rate 54; Glucose Random 167 mg/dL (60-115); Potassium 3.5 mmol/L (3.3-5.1); Sodium 142 mmol/L (135-145); Total Protein 6.7 g/dL (6.5-8.0)
== END 2024-05-27 07:17 | disposition home or self-care (01) ==
LOC: HO.HMGCLDS 07:16
PROVIDERS: PCP Internal Medicine; Visit Provider Nurse Practitioner Family
DX: I48.0 Paroxysmal atrial fibrillation (principal); I50.20 Unspecified systolic (congestive) heart failure
CPT/HCPCS: 36415; 80053; 83880; 84443

== ENCOUNTER 2024-06-26 08:14 | Outpatient (REF) | payer MEDICARE, SELFPAY ==
[2024-06-26 10:46] LABS: Magnesium 2.1 mg/dL (1.6-2.6)
== END 2024-06-26 08:15 | disposition home or self-care (01) ==
LOC: HO.HMGCLDS 08:14
PROVIDERS: PCP Internal Medicine; Visit Provider Nurse Practitioner Family
DX: R79.0 Abnormal level of blood mineral (principal)
CPT/HCPCS: 36415; 83735

== ENCOUNTER 2024-07-02 08:52 | Outpatient (REF) | payer MEDICARE, SELFPAY ==
[2024-07-02 11:03] LABS: B Type Natriuretic Peptide 1040 pg/mL (<100)
[2024-07-02 11:18] LABS: Anion Gap 14 (12-20); Blood Urea Nitrogen 19 mg/dL (9-16); Calcium 9.5 mg/dL (8.4-10.2); Carbon Dioxide 24 mmol/L (22-29); Chloride 103 mmol/L (96-108); Estimated Glomerular Filt Rate 44; Glucose Random 326 mg/dL (60-115); Potassium 4.1 mmol/L (3.3-5.1); Sodium 137 mmol/L (135-145)
== END 2024-07-02 08:53 | disposition home or self-care (01) ==
LOC: HO.HMGCLDS 08:52
PROVIDERS: PCP Internal Medicine; Visit Provider Nurse Practitioner Family
DX: I50.20 Unspecified systolic (congestive) heart failure (principal)
CPT/HCPCS: 36415; 80048; 83735; 83880

== ENCOUNTER 2024-07-09 09:32 | Outpatient (REF) | payer MEDICARE, SELFPAY ==
[2024-07-09 11:10] LABS: Anion Gap 13 (12-20); Blood Urea Nitrogen 25 mg/dL (9-16); Calcium 9.4 mg/dL (8.4-10.2); Carbon Dioxide 25 mmol/L (22-29); Chloride 103 mmol/L (96-108); Estimated Glomerular Filt Rate 45; Glucose Random 183 mg/dL (60-115); Potassium 3.8 mmol/L (3.3-5.1); Sodium 137 mmol/L (135-145)
== END 2024-07-09 09:33 | disposition home or self-care (01) ==
LOC: HO.HMGCLDS 09:32
PROVIDERS: PCP Internal Medicine; Visit Provider Internal Medicine
DX: I50.20 Unspecified systolic (congestive) heart failure (principal)
CPT/HCPCS: 36415; 80048

== ENCOUNTER 2024-07-11 11:10 | Outpatient (AMB) | payer MEDICARE, SELFPAY ==
--- NOTE | 2024-07-11 11:16 | A.OFFVIS_ITS ---
Vital Signs 07/11/24 11:17 Height 5 ft Weight 196 lb BMI 38.3 BP 138/76 Blood Pressure Location Lt brachial Position Sitting Pulse 98 Pulse Source Pulse Oximeter Pulse Oximetry (%) 98 Oxygen Delivery Method Room Air Intake Visit Reasons: PMR Intake Note: Patient is here for follow up on PMR, she last saw Thania Velazquez on 12/20/2023. Allergies iodine [Iodine] Allergy (Mild, Verified 07/11/24 11:22) HIVES metformin Adverse Reaction (Verified 07/11/24 11:22) Diarrhea Medication List - Last Reconciled 07/11/24 by Matt Palomares MD amlodipine 10 mg PO DAILY apixaban (Eliquis) 5 mg PO BID aspirin 81 mg PO DAILY blood sugar diagnostic ([employer] Ver[employer] test strips) As directed glipizide 10 mg PO BID insulin lispro (Humalog KwikPen (U-100) Insulin) subcut losartan-hydrochlorothiazide 50-12.5 mg 1 tab PO DAILY metoprolol tartrate 100 mg PO BID pravastatin 40 mg PO DAILY prednisone 1 mg PO DAILY prednisone 5 mg PO DAILY HPI Comments Details: This is a 78-year-old female with PMR presents for follow-up. She has not been seen in clinic since 12/2023. She has been taking prednisone 6 mg daily since then. She states that she continues to have morning stiffness lasting 1 hour as well as pain and stiffness of multiple joints including her shoulders, her hips, her knees Initial History by Thania Morel: Ms. Wilburn 78 yo F was referred by Ortho for evaluation of possible PMR. She has elevated ESR 66, CRP hs 10. Patient admits to shoulder and elbow pain, hand symptoms. But denies hip pain. She was active and able to do her ADLs prior to this onset 3 months ago. Bilateral shoulder, right worse, goes down to upper arm, can't lay down on side due to pain. Started last week of July 2023. Denies falls or inciting injuries. Limited ROM in upper extremities because of pain Describes hand joint pain. Needs both hands to hold a glass and difficulty opening bottles. denies numbness. Has had flare up like these before but would resolve spontaneously. Perhaps 3 times a year. History of DM, HTN, nephrectomy (congenital kidney disease per patient). She had prednisone recently but raised sugars high. Last blood sugar check at home was 170s. Uses walker now because of difficulty holding a cane with shoulder pain. Has been using cane for past 6 years. Family history of RA (mom)? Treatment done so far: tylenol meloxicam - no relief Patient denies symptoms of Temporal Arteritis and connective tissue Disease to include but not limited to headaches, altered vision at onset of the muscle pain, rashes, sun sensitivity and fatigue. She denies Raynaud's, joint swelling and redness. She has no concerns for chronic diarrhea, blood or mucus on stool. [facility] Medical History Primary osteoarthritis involving multiple joints PMR (polymyalgia rheumatica) Diabetes mellitus Kidney disease HTN (hypertension) Hand pain Shoulder pain Surgical History History of right nephrectomy Hx of cholecystectomy Family History Father HTN (hypertension) Mother HTN (hypertension) Kidney disease Arthritis Other CVA (cerebral vascular accident) Throat cancer Social History Alcohol intake: never Patient Tobacco Use Status: Never used Tobacco Review of Systems Musc Reports arthralgias, Reports limited range of motion and Reports stiffness Physical Exam Vital Signs: Last Vital Signs Pulse 98 07/11/24 11:17 BP 138/76 07/11/24 11:17 Pulse Ox 98 07/11/24 11:17 Oxygen Delivery Method Room Air 07/11/24 11:17 BMI result Body Mass Index 38.3 Const General: cooperative, healthy appearing and comfortable Nutritional Appearance: obese morbidly obese Orientation/consciousness: patient oriented x3 Limitations: ambulation with cane HEENT Head: Yes normocephalic and Yes atraumatic Mouth: moist mucous membranes Resp Effort & Inspection: normal respiratory effort and able to speak in complete sentences Neuro General: patient oriented x3 Extrem Other: Minimal osteoarthritic changes of both hands Significantly limited bilateral shoulder abduction Bilateral trochanteric bursa area tenderness Assessment & Plan Assessment & Plan (1) PMR (polymyalgia rheumatica): Comment: dx 10/2023 Code(s): M35.3 - Polymyalgia rheumatica Category: Medical Plan: This is a 78-year-old female with PMR who presents for follow-up. This is her 1st visit with me. She has been taking prednisone 6 mg daily for the last 6 months. Repeat inflammatory markers today. Continue with prednisone 6 mg daily, if inflammatory markers have improved, plan to reduce it to 5 mg daily and taper by 1 mg per month Labs before next visit in 2 months Plan I spent 30 minutes reviewing patient's chart, evaluating patient, ordering diagnostic workup, counseling patient and documenting in the chart Orders: Orders Complete Blood Count Auto Diff 2 Months M35.3 - Polymyalgia rheumatica Comprehensive Met. Panel 2 Months M35.3 - Polymyalgia rheumatica C Reactive Protein 2 Months M35.3 - Polymyalgia rheumatica Erythrocyte Sedimentation Rate 2 Months M35.3 - Polymyalgia rheumatica Complete Blood Count Auto Diff Today M35.3 - Polymyalgia rheumatica Comprehensive Met. Panel Today M35.3 - Polymyalgia rheumatica C Reactive Protein Today M35.3 - Polymyalgia rheumatica Erythrocyte Sedimentation Rate Today M35.3 - Polymyalgia rheumatica Hepatitis A,B,C Profile Today Z11.59 - Encounter for screening for other viral diseases T Spot TB Today Z11.7 - Encounter for testing for latent tuberculosis infection Medications: Refilled prednisone 1 mg PO DAILY 60 tabs 0RF Coding Level of Care Code Est Pt Level 4 (54277) Diagnoses PMR (polymyalgia rheumatica) M35.3
[2024-07-11 11:17] VITALS: BP 138/76; PULSE 98; O2SAT 98; BMI 38.3
== END 2024-07-11 12:04 | disposition home or self-care (01) ==
PROVIDERS: PCP Internal Medicine; Visit Provider Student in an Organized Health Care Education/Training Program
DX: M35.3 Polymyalgia rheumatica (principal)
CPT/HCPCS: 99214

== ENCOUNTER → 2024-07-11 11:10 | Outpatient (BNVA) | payer MEDICARE, SELFPAY | PROVIDERS: PCP Internal Medicine; Visit Provider Student in an Organized Health Care Education/Training Program | DX: M35.3 Polymyalgia rheumatica (principal) | CPT/HCPCS: 99212 ==

== ENCOUNTER 2024-07-19 09:05 | Outpatient (REF) | payer MEDICARE, SELFPAY ==
[2024-07-19 10:06] LABS: MANUAL DIFF FLAG NO
[2024-07-19 10:12] LABS: Basophils Percent Auto 0.3 % (0-2); Eosinophils Absolute Auto 0.1 X10*3/uL (0.0-0.4); Eosinophils Percent Auto 1.2 % (0-4); Hematocrit 41.5 % (37.0-47.0); Hemoglobin 13.7 g/dl (12.0-16.0); Imm Gran Abs Auto 0.05 X10*3/uL (0.00-0.03); Imm Gran Pct Auto 0.5 % (0.0-0.4); Lymphocytes Absolute Auto 2.6 X10*3/uL (1.2-4.9); Lymphocytes Percent Auto 24.5 % (20-40); Mean Corpuscular Hemoglobin 30.5 pg (27.0-33.0); Mean Corpuscular Volume 92.4 fL (80.0-98.0); Mean Platelet Volume 10.9 fL (9.4-12.3); Monocytes Absolute Auto 0.8 X10*3/uL (0.1-1.2); Monocytes Percent Auto 7.1 % (2-11); Neutrophils Absolute Auto 7.1 x10*3/uL (2.0-8.3); Neutrophils Percent Auto 66.4 % (45-73); Platelet Count 336 X10*3/uL (160-400); Red Blood Count 4.49 X10*6/uL (4.20-5.50); Red Cell Distribution Width 13.5 % (11.0-16.0); White Blood Count 10.6 X10*3/uL (4.8-10.8)
[2024-07-19 10:58] LABS: Erythrocyte Sedimentation Rate 25 MM/HR (0-20)
[2024-07-19 11:03] LABS: Alanine Aminotransferase 11 U/L (0-31); Albumin Level 3.5 g/dL (3.5-5.0); Alkaline Phosphatase 113 U/L (39-117); Anion Gap 13 (12-20); Aspartate Amino Transferase 11 U/L (5-31); Bilirubin Total 0.4 mg/dL (0.0-1.0); Blood Urea Nitrogen 20 mg/dL (9-16); C Reactive Protein 0.94 mg/dL (< or = 0.50); Calcium 9.6 mg/dL (8.4-10.2); Carbon Dioxide 27 mmol/L (22-29); Chloride 101 mmol/L (96-108); Estimated Glomerular Filt Rate 44; Glucose Random 296 mg/dL (60-115); Potassium 3.8 mmol/L (3.3-5.1); Sodium 137 mmol/L (135-145); Total Protein 6.5 g/dL (6.5-8.0)
[2024-07-19 11:15] LABS: HBS Num1 0.47 mIU/mL (0-7.99); HBc Num1 0.08 S/CO (0.00-0.79); HBsAGNum1 0.23 S/CO (0.00-0.99); Hepatitis A Antibody IgM 0.53 Index (0-0.79); Hepatitis B Core Antibody Nonreactive (Nonreactive); Hepatitis B Surface Antigen Negative (Negative); ~HepC Num1 0.08 S/CO (0.00-0.79); ~Hepatitis A Antibody IgM Nonreactive (Nonreactive); ~Hepatitis B Surface Antibody NONREACTIVE (Nonreactive); ~Hepatitis C Antibody Nonreactive (Nonreactive)
[2024-07-22 14:29] LABS: TS Negative Control Passed; TS Panel A 0; TS Panel B 0; TS Positive Control Passed; TSpotTB Negative (Negative)
== END 2024-07-19 09:06 | disposition home or self-care (01) ==
LOC: HO.HMGCLDS 09:05
PROVIDERS: PCP Internal Medicine; Referring Provider Internal Medicine; Visit Provider Student in an Organized Health Care Education/Training Program
DX: I50.20 Unspecified systolic (congestive) heart failure (principal); M35.3 Polymyalgia rheumatica; Z11.59 Encounter for screening for other viral diseases; Z11.7 Encounter for testing for latent tuberculosis infection
CPT/HCPCS: 36415; 80053; 85025; 85652; 86140; 86481; 86704; 86706; 86709; 86803; 87340

== ENCOUNTER 2024-10-14 08:11 | Outpatient (REF) | payer MEDICARE, SELFPAY ==
[2024-10-14 10:07] LABS: MANUAL DIFF FLAG NO
[2024-10-14 10:11] LABS: Basophils Absolute Auto 0.1 X10*3/uL (0.0-0.2); Basophils Percent Auto 0.4 % (0-2); Eosinophils Absolute Auto 0.2 X10*3/uL (0.0-0.4); Eosinophils Percent Auto 1.4 % (0-4); Hematocrit 41.6 % (37.0-47.0); Hemoglobin 14.5 g/dl (12.0-16.0); Imm Gran Abs Auto 0.05 X10*3/uL (0.00-0.03); Imm Gran Pct Auto 0.4 % (0.0-0.4); Lymphocytes Absolute Auto 4.3 X10*3/uL (1.2-4.9); Lymphocytes Percent Auto 33.3 % (20-40); Mean Corpuscular HGB Conc 34.9 g/dl (31.0-35.0); Mean Corpuscular Hemoglobin 33.3 pg (27.0-33.0); Mean Corpuscular Volume 95.4 fL (80.0-98.0); Mean Platelet Volume 10.9 fL (9.4-12.3); Monocytes Absolute Auto 1.3 X10*3/uL (0.1-1.2); Neutrophils Percent Auto 54.5 % (45-73); Platelet Count 335 X10*3/uL (160-400); Red Blood Count 4.36 X10*6/uL (4.20-5.50); Red Cell Distribution Width 12.9 % (11.0-16.0); White Blood Count 12.9 X10*3/uL (4.8-10.8)
[2024-10-14 10:49] LABS: Erythrocyte Sedimentation Rate 12 MM/HR (0-20)
[2024-10-14 10:55] LABS: Alanine Aminotransferase 14 U/L (0-31); Albumin Level 3.5 g/dL (3.5-5.0); Alkaline Phosphatase 110 U/L (39-117); Anion Gap 9 (12-20); Aspartate Amino Transferase 18 U/L (5-31); Bilirubin Total 0.5 mg/dL (0.0-1.0); Blood Urea Nitrogen 18 mg/dL (9-16); C Reactive Protein 0.34 mg/dL (< or = 0.50); Calcium 9.3 mg/dL (8.4-10.2); Carbon Dioxide 30 mmol/L (22-29); Chloride 103 mmol/L (96-108); Estimated Glomerular Filt Rate 44; Glucose Random 189 mg/dL (60-115); Potassium 3.4 mmol/L (3.3-5.1); Sodium 139 mmol/L (135-145); Total Protein 6.5 g/dL (6.5-8.0)
== END 2024-10-14 08:12 | disposition home or self-care (01) ==
LOC: HO.HMGCLDS 08:11
PROVIDERS: PCP Internal Medicine; Visit Provider Student in an Organized Health Care Education/Training Program
DX: M35.3 Polymyalgia rheumatica (principal)
CPT/HCPCS: 36415; 80053; 85025; 85652; 86140

== ENCOUNTER 2024-10-16 08:12 | Outpatient (AMB) | payer MEDICARE, SELFPAY ==
--- NOTE | 2024-10-16 08:12 | A.OFFVIS_ITS ---
Vital Signs 10/16/24 08:16 Height 5 ft Weight 197 lb 12.074 oz BMI 38.6 BP 154/92 H Blood Pressure Location Lt brachial Position Sitting Pulse 56 Pulse Source Pulse Oximeter Pulse Oximetry (%) 98 Oxygen Delivery Method Room Air Intake Visit Reasons: PMR/cm Intake Note: Patient presents for PMR. Allergies iodine [Iodine] Allergy (Mild, Verified 10/16/24 08:16) HIVES metformin Adverse Reaction (Verified 10/16/24 08:16) Diarrhea Medication List - Last Reconciled 10/16/24 by Matt Palomares MD amlodipine 10 mg PO DAILY apixaban (Eliquis) 5 mg PO BID aspirin 81 mg PO DAILY blood sugar diagnostic ([employer] Verio test strips) As directed glipizide 10 mg PO BID insulin lispro (Humalog KwikPen (U-100) Insulin) subcut losartan-hydrochlorothiazide 50-12.5 mg 1 tab PO DAILY metoprolol tartrate 100 mg PO BID pravastatin 40 mg PO DAILY prednisone Take 4 tabs a day for 1 month then 3 tabs a day for 1 month then 2 tabs a day for one-month HPI Comments Details: This is a 79-year-old female with PMR presents for follow-up. She has been on prednisone 5 mg daily for the past 2 months or so. She states that she feels about the same overall. She has generalized joint pain and stiffness. Morning stiffness lasts hours. She takes 1300 mg of Tylenol 3 times a day. Initial History by Thania Morel: Ms. Wilburn 78 yo F was referred by Ortho for evaluation of possible PMR. She has elevated ESR 66, CRP hs 10. Patient admits to shoulder and elbow pain, hand symptoms. But denies hip pain. She was active and able to do her ADLs prior to this onset 3 months ago. Bilateral shoulder, right worse, goes down to upper arm, can't lay down on side due to pain. Started last week of July 2023. Denies falls or inciting injuries. Limited ROM in upper extremities because of pain Describes hand joint pain. Needs both hands to hold a glass and difficulty opening bottles. denies numbness. Has had flare up like these before but would resolve spontaneously. Perhaps 3 times a year. History of DM, HTN, nephrectomy (congenital kidney disease per patient). She had prednisone recently but raised sugars high. Last blood sugar check at home was 170s. Uses walker now because of difficulty holding a cane with shoulder pain. Has been using cane for past 6 years. Family history of RA (mom)? Treatment done so far: tylenol meloxicam - no relief Patient denies symptoms of Temporal Arteritis and connective tissue Disease to include but not limited to headaches, altered vision at onset of the muscle pain, rashes, sun sensitivity and fatigue. She denies Raynaud's, joint swelling and redness. She has no concerns for chronic diarrhea, blood or mucus on stool. [facility] Medical History Cataract Primary osteoarthritis involving multiple joints PMR (polymyalgia rheumatica) Diabetes mellitus Kidney disease HTN (hypertension) Hand pain Shoulder pain Surgical History History of right nephrectomy Hx of cholecystectomy Family History Father HTN (hypertension) Mother HTN (hypertension) Kidney disease Arthritis Other CVA (cerebral vascular accident) Throat cancer Social History Alcohol intake: never Patient Tobacco Use Status: Never used Tobacco Review of Systems [facility] Reports arthralgias, Reports limited range of motion and Reports stiffness Physical Exam Vital Signs: Last Vital Signs Pulse 56 10/16/24 08:16 BP 154/92 H 10/16/24 08:16 Pulse Ox 98 10/16/24 08:16 Oxygen Delivery Method Room Air 10/16/24 08:16 BMI result Body Mass Index 38.6 Const General: cooperative, healthy appearing and comfortable Nutritional Appearance: obese morbidly obese Orientation/consciousness: patient oriented x3 Limitations: ambulation with cane HEENT Head: Yes normocephalic and Yes atraumatic Mouth: moist mucous membranes Resp Effort & Inspection: normal respiratory effort and able to speak in complete sentences Neuro General: patient oriented x3 Extrem Other: Exam is limited as patient could not get up on the examination table Minimal osteoarthritic changes of both hands Significantly limited bilateral shoulder abduction Bilateral trochanteric bursa area tenderness Multiple fibromyalgia tender points Assessment & Plan Assessment & Plan (1) PMR (polymyalgia rheumatica): Comment: dx 10/2023 Code(s): M35.3 - Polymyalgia rheumatica Category: Medical Plan: This is a 79-year-old female with PMR who presents for follow-up. She has been lowering her prednisone. She has been taking prednisone 5 mg daily for the last 2 months. Her inflammation markers have normalized. Her PMR is well controlled. She continues to feel about the same. I think her symptoms at this time are related to generalized osteoarthritis and fibromyalgia. Lower prednisone by 1 mg per month. 4 mg daily from tomorrow If patient flares up next visit, an alternative treatment of PMR should be pursued such as Kevzara as patient has multiple comorbidities such as insulin- dependent diabetes mellitus and early cataracts. Plan I spent 20 minutes reviewing patient's chart, evaluating patient, ordering diagnostic workup, counseling patient and documenting in the chart Orders: Orders Complete Blood Count Auto Diff 3 Months M35.3 - Polymyalgia rheumatica Erythrocyte Sedimentation Rate 3 Months M35.3 - Polymyalgia rheumatica Comprehensive Met. Panel 3 Months 5.3 - Polymyalgia rheumatica C Reactive Protein 3 Months M35.3 - Polymyalgia rheumatica Medications: Changed From prednisone 1 mg PO DAILY 60 tabs 0RF To prednisone Take 4 tabs a day for 1 month then 3 tabs a day for 1 month then 2 tabs a day for one-month 270 tabs 0RF Discontinued prednisone Discontinued Reason: Doctor's Order 5 mg PO DAILY 30 tabs 0RF M35.3 - Polymyalgia rheumatica Coding Level of Care Code Est Pt Level 3 (04770) Diagnoses PMR (polymyalgia rheumatica) M35.3
[2024-10-16 08:16] VITALS: BP 154/92; PULSE 56; O2SAT 98; BMI 38.6
== END 2024-10-16 08:36 | disposition home or self-care (01) ==
PROVIDERS: PCP Internal Medicine; Visit Provider Student in an Organized Health Care Education/Training Program
DX: M35.3 Polymyalgia rheumatica (principal)
CPT/HCPCS: 99213

== ENCOUNTER → 2024-10-16 08:12 | Outpatient (BNVA) | payer MEDICARE, SELFPAY | PROVIDERS: PCP Internal Medicine; Visit Provider Student in an Organized Health Care Education/Training Program | DX: M35.3 Polymyalgia rheumatica (principal) | CPT/HCPCS: 99212 ==

== ENCOUNTER 2025-02-04 07:57 | Outpatient (REF) | payer MEDICARE, SELFPAY ==
--- OUTSIDE RECORDS SUMMARY | 2025-02-04 08:07 | XMS_ITS | Encounter Summary ---
Author Organization [facility] Address [address] [place] [address] Care Team Providers Care Electric Meter Repairer Apprentice Name Role Phone Eveline Douglass MD Primary Care Provider [phone] Reason for Visit * Reason Comments Follow-up * Other Medical (Routine) - Authorized Specialty Diagnoses / Procedures Referred By Contac t Referred To Contact Cardiology Diagnoses Return in about 3 months (around 09/28/2024)] Ok to book here per YOAN Cardioversion pt 06-28-24 lmom and mailed info -kathys Procedures OFFICE VISIT Eveline Douglass MD [address] [place] [address] [place] [address] Phone: tel: fax: Jayla Medina NP [address] [place] [address] Phone: tel: fax: Referral ID Status Reason Start Date Expiration Date V isits Requested Visits Authorized [id number] Authorized 05/07/2024 05/06/2025 4 4 Encounter Details Date Type Department Care Team (Late st Contact Info) Description 01/23/2025 1:40 PM EDT Office Visit [facility] - [address] [place] [address] Jayla Medina NP [address] [place] [address] Atrial fibrillation, unspecified type (CMS/HCC) (Primary Dx); HFrEF (heart failure with reduced ejection fraction) (CMS/HCC); SOB (shortness of breath) Social History Tobacco Use Types Packs/Day Years Used Date Smoking Tobacco: Former Smokeless Tobacco: Never Alcohol Use Standard Drinks/Week Comments Not Currently 0 (1 standard drink = 0.6 oz pur e alcohol) Housing Instability Answer Date Recorde d Are you worried that in the next 2 months you may not have stable housing? No 11/17/2024 Food Access & Nutrition Answer Date Rec orded Do you have access to a vari ety of food including fruits and vegetables? Yes 11/17/2024 Access to Healthcare Answer Date Record ed Within the last 3 months, ho w many times did you visit the emergency department for your medical care? 2 11/17/2024 Health Literacy Answer Date Recorded How often do you need to hav e someone help you when you read instructions, pamphlets, or other written material from your doctor or pharmacy? Never 11/17/2024 Caregiver: How often do you need to have someone help you when you read instructions, pamphlets, or other written material from your doctor or pharmacy? Not on file 11/17/2024 Financial Risk Answer Date Recorded How hard is it for you to pa y for the very basics like food, housing, medical care, and air conditioning / heating? Not very hard 11/17/2024 Transportation Answer Date Recorded Has the lack of transportati on kept you from meetings, work, or from getting things needed for daily living? No Has the lack of transportati on kept you from medical appointments or from getting medications? No 11/17/2024 Social Isolation Answer Date Recorded How often do you feel lonely or isolated from th ose around you? Never 11/17/2024 Food Risk Answer Date Recorded Within the past 12 months we worried whether our food would run out before we got money to buy more. Never true 11/17/2024 Within the past 12 months th e food we bought just didn't last and we didn't have money to get more. Never true 11/17/2024 Dependent Care Answer Date Recorded Do you need help finding or paying for care for your loved ones. For example, early childhood aide classroom or elderly care for an older adult? No 11/17/2024 Education Answer Date Recorded Do you think completing more education or training, like finishing a GED, going to college, or learning a trade, would be helpful for you? No 11/17/2024 Employment and Income Answer Date Recor ded During the last four weeks, have you been actively looking for work? No 11/17/2024 Living Situation Answer Date Recorded What is your living situation? 0 11/17/2024 Interpersonal Safety Answer Date Record ed Physical Abuse 11/17/2024 Verbal Abuse 11/17/2024 Comments No Sex and Gender Information Value Date Recorded Sex Assigned at Female 11/16/2024 10:19 PM EST Legal Sex Female 11:27 PM EST Gender Identity Female 11/16/2024 10:19 PM EST Sexual Orientation Straight 11/16/2024 10 :19 PM EST documented as of this encounter Last Filed Vital Signs Vital Sign Reading Time Taken Comments Blood Pressure 140/90 01/23/2025 1:34 PM EDT Pulse 56 01/23/2025 1:34 PM EDT Temperature - - Respiratory Rate - - Oxygen Saturation - - Inhaled Oxygen Concentration - - Weight 89.8 kg (198 lb) 01/23/2025 1:34 PM EDT Height 152.4 cm (5') 01/23/2025 1:34 PM EDT Body Mass Index 38.67 01/23/2025 1:34 PM EDT documented in this encounter Functional Status * Are you deaf or do you have serious difficulty hearing? Answer Date of Assessment Author No 11/09/2024 8:15 AM Geeta Osborne RN * Are you blind or do you have serious difficulty seeing, even when wearing glasses? Answer Date of Assessment Author No 11/09/2024 8:15 AM Geeta Osborne RN * Do you have serious difficulty walking or climbing stairs? Answer Date of Assessment Author No 11/09/2024 8:15 AM Geeta Osborne RN * Do you have serious difficulty dressing or bathing? Answer Date of Assessment Author No 11/09/2024 8:15 AM Geeta Osborne RN * Because of a physical, mental, or emotional condition, do you have serious difficulty doing errandsalone such as visiting the doctor? Answer Date of Assessment Author No 11/09/2024 8:15 AM Geeta Osborne RN documented as of this encounter Mental Status * Because of a physical, mental, or emotional condition, do you have serious difficulty concentrating, remembering, or making decisions? (5 years old or older) Answer Entry Date Author No 11/09/2024 8:15 Geeta Barton RN documented in this encounter Ordered Prescriptions Prescription Sig Dispense Quantity Refills Last Filled Start Date End Date torsemide (DEMADEX) 20 mg tabletIndications: HFrEF (heart failure with reduced ejection fraction) (CMS/HCC),SOB (shortness of breath) Take 4 tablets (80 mg total) by mouth 1 (one) time each day. 120 each 11 01/23/2025 documented in this encounter Progress Notes * Jayla Medina NP - 01/23/2025 1:40 PM EDTAssociated Problem(s): A- fib (CMS/HCC) Denies perception of recurrence of arrhythmia. She presents in sinus rhythm today. She will continue to be anticoagulated on Eliquis for stroke reduction. Educated on risks and benefits of continuingwith anticoagulation including increased risk for hemorrhage and decreased risk for stroke. Encouraged to seek emergent medical attention should the patient sustain a fall involving a head strike. The patient understands these risks and agrees to continue. Orders: ECG 12 lead * Jayla Medina NP - 01/23/2025 1:40 PM EDTAssociated Problem(s): HFrEF (heart failure with reduced ejection fraction) (CMS/HCC) Patient is volume overloaded during our exam today as outlined above. We did discuss sending her [facility] emergency room for hospital admission with likely IV diuresis. At this time the patient would like to defer and to see if we can manage this on an outpatient basis. Reviewed with Dr. Guadarrama. Via shared decision making, we are going to discontinue her furosemide and transition Casas to 80 mg of torsemide. I have instructed the patient to go home and perform a weight. Take 80 mg of torsemide. She needs to be very mindful of her sodium intake. She will weigh herself again tomorrow morning and take another 80 mg of torsemide. She is going to reach out to our office tomorrow by 1 PM with an update on her symptoms. Should her weight continue to increase,, her peripheral edema worsen, her shortness of breath PND and orthopnea worsen she needs to go directly to the emergency room. The patientunderstands and agrees to this plan. If the patient has favorable response to medication change, we will likely keep her on torsemide 80mg at least throughout the weekend with updated BMP to be performed early next week. We will also likely need to transition her metoprolol to carvedilol to help titrate GDMT for HFrEF as well as manage her blood pressure. Orders: torsemide (DEMADEX) 20 mg tablet; Take 4 tablets (80 mg total) by mouth 1 (one) time each day. Basic metabolic panel; Future * Jayla Medina NP - 01/23/2025 1:40 PM EDTAssociated Problem(s): SOB (shortness of breath) See care plan for HFrEF. Orders: torsemide (DEMADEX) 20 mg tablet; Take 4 tablets (80 mg total) by mouth 1 (one) time each day. Basic metabolic panel; Future * Jayla Medina NP - 01/23/2025 1:40 PM EDT Images from the original note were not included. [facility] PRIMARY BIAS BINDING CUTTER: Wil Guadarrama MD PCP: Eveline Douglass MD HPI: Akila Acevedo is a 79 y.o. old female with past medical history of atrial fibrillation, anticoagulated on Eliquis for stroke reduction, hypertension, PVD, palpitations, hyperlipidemia and shortness of breath. April 03, 2024 patient presented to [facility] emergency room with lower extremity edema. She was noted to have new onset atrial fibrillation. This required IV Cardizem for rate control. Chest x-ray at that time revealed right upper lobe pneumonia. Echocardiogram performed during hospitalization. This revealed LVH with a wall thickness of 16 mm. Global hypokinesis. Reduced LV systolic function. Right atrial dilatation. Mild mitral annular calcification. Patient was diuresed with IV Lasix. It was likely her reduction in her LVEF was tachycardia mediated. Subsequently she underwent HUSEYIN cardioversion to restore sinus rhythm. On April 15, 2024 she received a 200 J direct-current cardioversion with sabianism of sinus rhythm. Patient was seen in our office in May 2024. At that time she presented back in atrial fibrillationwith a controlled ventricular rate in the 70s. She did endorse symptoms of fatigue, shortness of breath and bilateral lower extremity edema. Her digoxin was discontinued at that time she was started on amiodarone therapy with plan for cardioversion a few weeks after initiation of antiarrhythmic therapy. Unfortunately, the patient presented to [facility] emergency room on May 28, 2024 with ongoing complaints of worsening shortness of breath and bilateral lower extremity edema. At that timeit appeared she was now in atrial fibrillation with a rapid ventricular response and mild CHF. She was diuresed with IV Lasix, started on Cardizem drip. During this hospitalization patient underwent cardioversion and restored normal sinus rhythm. November 16, 2024 patient presented to [facility] with complaints of progressive shortness of breath. She was found to be volume overloaded and was diuresed with IV Lasix. During hospitalization her blood pressure was also noted to be uncontrolled and amlodipine was added. She presents today for hospital follow-up for CHF exacerbation. Unfortunately, the patient endorsesfeeling poorly with increased swelling, shortness of breath, PND and orthopnea. She has noticed an increase in her weight since she was discharged from the hospital. She did endorse a brief period where she did feel better after IV diuresis. She does state compliance with her medications. She is trying to be mindful of her sodium intake. ACTIVE MEDICATIONS: Outpatient Medications Marked as Taking for the 01/23/25 encounter (Office Visit) with Jayla Medina NP Medication Sig Dispense Refill amiodarone (PACERONE) 200 mg tablet TAKE 1 TABLET BY MOUTH EVERY DAY 90 tablet 1 amLODIPine (NORVASC) 5 mg tablet Take 1 tablet (5 mg total) by mouth 1 (one) time each day. 30 each0 apixaban (Eliquis) 5 mg tablet Take 1 tablet (5 mg total) by mouth 2 (two) times a day. furosemide (LASIX) 40 mg tablet TAKE 1 TABLET BY MOUTH EVERY DAY 90 tablet 3 insulin glargine,hum.rec.anlog (INSULIN GLARGINE SUBQ) Inject 12 Units into the skin at bedtime. losartan (Cozaar) 100 mg tablet Take 1 tablet (100 mg total) by mouth 1 (one) time each day. 30 each 11 metoprolol tartrate (LOPRESSOR) 100 mg tablet Take 1 tablet (100 mg total) by mouth 2 (two) times aday. pravastatin (PRAVACHOL) 40 mg tablet Take 1 tablet (40 mg total) by mouth 1 (one) time each day. predniSONE (DELTASONE) 1 mg tablet Take 3 Tablets by mouth daily. Take with 5 mg tablet for a totalof 8 mg daily predniSONE (DELTASONE) 5 mg tablet Take 1 Tablet by mouth daily. Take with three- 1 mg tablets for a total of 8 mg daily PAST MEDICAL HISTORY: Patient Active Problem List Diagnosis A-fib ([facility]) HTN (hypertension) PVD (peripheral vascular disease) ([facility]) Secondary hypercoagulable state ([facility]) HLD (hyperlipidemia) Lower extremity edema Intermittent palpitations SOB (shortness of breath) HFrEF (heart failure with reduced ejection fraction) ([facility]) Atrial flutter ([facility]/HCC) Acute on chronic heart failure with preserved ejection fraction ([facility]/HCC) Acute on chronic heart failure with preserved ejection fraction (HFpEF) ([facility]) Acute on chronic congestive heart failure, unspecified heart failure type ([facility]) Acute hypoxic respiratory failure ([facility]) ALLERGIES: No Known Allergies SOCIAL HISTORY: Social History Tobacco Use Smoking status: Former Smokeless tobacco: Never Substance Use Topics Alcohol use: Not Currently PHYSICAL EXAM: Vitals: 01/23/25 1334 Weight: 89.8 kg (198 lb) Height: 1.524 m (60 ) Physical Exam Vitals reviewed. Constitutional: General: She is not in acute distress. HENT: Head: Normocephalic. Eyes: Pupils: Pupils are equal, round, and reactive to light. Cardiovascular: Rate and Rhythm: Normal rate and regular rhythm. Pulses: Normal pulses. Heart sounds: No murmur heard. No friction rub. No gallop. Pulmonary: Effort: Pulmonary effort is normal. Breath sounds: Examination of the right-lower field reveals rales. Examination of the left-lower field reveals rales. Rales present. No wheezing or rhonchi. Abdominal: General: Abdomen is flat. There is distension. Palpations: Abdomen is soft. Musculoskeletal: General: No swelling. Cervical back: Normal range of motion. Right lower leg: Edema present. Left lower leg: Edema present. Comments: +1 bilateral lower extremities 1/2 way up calf Skin: General: Skin is warm and dry. Neurological: Mental Status: She is alert and oriented to person, place, and time. Mental status is at baseline. Psychiatric: Mood and Affect: Mood normal. Behavior: Behavior normal. EKG: Encounter Date: 11/16/24 ECG 12 lead Result Value Ventricular Rate ECG 69 Atrial Rate 69 P-R Interval 132 QRS Duration 94 Q-T Interval 464 QTc 497 P Wave Council 20 R Council -11 T Council 148 ECG Interpretation Normal sinus rhythm Left ventricular hypertrophy with repolarization abnormality Prolonged QT Abnormal ECG When compared with ECG of 16-NOV-2024 21:42, (unconfirmed) T wave inversion more evident in Lateral leads Confirmed by CAIO MCRAE ([id number]) on 11/18/2024 4:36:02 PM *Note: Due to a large number of results and/or encounters for the requested time period, some results have not been displayed. A complete set of results can be found in Results Review. TESTING: ASSESSMENT/PLAN: Assessment & Plan Atrial fibrillation, unspecified type (CMS/HCC) Denies perception of recurrence of arrhythmia. She presents in sinus rhythm today. She will continue to be anticoagulated on Eliquis for stroke reduction. Educated on risks and benefits of continuingwith anticoagulation including increased risk for hemorrhage and decreased risk for stroke. Encouraged to seek emergent medical attention should the patient sustain a fall involving a head strike. The patient understands these risks and agrees to continue. Orders: ECG 12 lead HFrEF (heart failure with reduced ejection fraction) (CMS/HCC) Patient is volume overloaded during our exam today as outlined above. We did discuss sending her [facility] emergency room for hospital admission with likely IV diuresis. At this time the patient would like to defer and to see if we can manage this on an outpatient basis. Reviewed with Dr. Guadarrama. Via shared decision making, we are going to discontinue her furosemide and transition Casas to 80 mg of torsemide. I have instructed the patient to go home and perform a weight. Take 80 mg of torsemide. She needs to be very mindful of her sodium intake. She will weigh herself again tomorrow morning and take another 80 mg of torsemide. She is going to reach out to our office tomorrow by 1 PM with an update on her symptoms. Should her weight continue to increase,, her peripheral edema worsen, her shortness of breath PND and orthopnea worsen she needs to go directly to the emergency room. The patientunderstands and agrees to this plan. If the patient has favorable response to medication change, we will likely keep her on torsemide 80mg at least throughout the weekend with updated BMP to be performed early next week. We will also likely need to transition her metoprolol to carvedilol to help titrate GDMT for HFrEF as well as manage her blood pressure. Orders: torsemide (DEMADEX) 20 mg tablet; Take 4 tablets (80 mg total) by mouth 1 (one) time each day. Basic metabolic panel; Future SOB (shortness of breath) See care plan for HFrEF. Orders: torsemide (DEMADEX) 20 mg tablet; Take 4 tablets (80 mg total) by mouth 1 (one) time each day. Basic metabolic panel; Future Thank you for allowing us to participate in the care of this patient. The patient will follow up in4 weeks, sooner PRN. As per AHA guidelines and previously established plan of care by Dr. Wil Guadarrama MD, we discussed the following today: 1. Atrial fibrillation, unspecified type (CMS/HCC) [facility] Cosigned by Daisy Urena MD at 01/23/2025 5:42 PM EDT documented in this encounter Plan of Treatment Upcoming Encounters Date Type Department Care Team (Late st Contact Info) Description 02/17/2025 9:10 AM EDT Office Visit [facility] - [address] [place] [id number] Jayla Medina NP [address] [place] [address] Scheduled Orders Name Type Priority Associated Diagnoses Orde r Schedule Basic metabolic panel Lab Routine HFrEF (heart failure with reduced ejection fraction) (CMS/HCC) SOB (shortness of breath) 1 Occurrences starting 01/23/2025 until 01/23/2026 documented as of this encounter Procedures Procedure Name Priority Date/Time Associated Diagnosis Comments ECG 12-LEAD Routine 01/23/2025 2:18 PM EDT Atrial fibrillation, unspecified type (CMS/HCC) documented in this encounter Results * ECG 12 lead (01/23/2025 2:18 PM EDT) Ventricular Rate ECG 56 BPM GEMUSE Atrial Rate 56 BPM GEMUSE P-R Interval 146 ms GEMUSE QRS Duration 92 ms GEMUSE Q-T Interval 528 ms GEMUSE QTc 509 ms GEMUSE P Wave Council -28 degrees GEMUSE R Council 1 degrees GEMUSE T Council 151 degrees GEMUSE ECG Interpretation Sinus bradycardia Left ventricular hypertrophy with repolarization abnormality Prolonged QT Abnormal ECG When compared with ECG of 17-NOV-2024 19:40, No significant change was found Confirmed by Constantin URENA YUFENG ([id number]) on 01/23/2025 2:48:47 PM GEMUSE 01/23/2025 1:42 PM EDT 01/23/2025 2:48 PM EDT us Jayla Medina NP ECG ORDERABLES Edited Result - Final GEMRANDA documented in this encounter Visit Diagnoses Diagnosis Atrial fibrillation, unspecified type ([facility])- Primary HFrEF (heart failure with reduced ejection fraction) ([facility]) SOB (shortness of breath) Shortness of breath documented in this encounter Discontinued Medications Medication Sig Discontinue Reason Start Date End Da te furosemide (LASIX) 40 mg tabletIndications:Paroxys mal atrial fibrillation ([facility]),Unspecified systolic (congestive) heart failure ([facility]) TAKE 1 TABLET BY MOUTH EVERY DAY Formulary change 01/08/2025 01/23/2025 documented as of this encounter Care Teams Electric Meter Repairer Apprentice Relationship Specialty Start Date End Date Eveline Douglass MD [address] [place] [address] Dr Ashley, [place] [id number] PCP - General 05/23/24 documented as of this encounter
--- OUTSIDE RECORDS SUMMARY | 2025-02-04 08:08 | XMS_ITS | Clinical Summary ---
Author Organization [address] [place] [address] Address [address] [place] [address] Phone Care Team Providers Care Press Department Manager Name Role Phone Eveline Douglass MD Primary Care Provider [phone] Allergies No known active allergies Medications apixaban (Eliquis) 5 mg tablet Take 1 tablet (5 mg total) by mouth 2 (two) times a day. 05/23/20 24 Active metoprolol tartrate (LOPRESSOR) 100 mg tablet Take 1 tablet (100 mg total) by mouth 2 (two) times a day. Active pravastatin (PRAVACHOL) 40 mg tablet Take 1 tablet (40 mg total) by mouth 1 (one) time each day. 05/02/20 24 Active predniSONE (DELTASONE) 1 mg tablet Take 3 Tablets by mouth daily. Take with 5 mg tablet for a total of 8 mg daily Active predniSONE (DELTASONE) 5 mg tablet Take 1 Tablet by mouth daily. Take with three- 1 mg tablets for a total of 8 mg daily Active insulin glargine,hum.rec .anlog (INSULIN GLARGINE SUBQ) Inject 12 Units into the skin at bedtime. Active losartan (Cozaar) 100 mg tabletIndication s:Atrial fibrillation, unspecified type (CMS/HCC),Primar y hypertension Take 1 tablet (100 mg total) by mouth 1 (one) time each day. 30 each 10/03/20 24 025 Active amLODIPine (NORVASC) 5 mg tablet Take 1 tablet (5 mg total) by mouth 1 (one) time each day. 30 each 11/21/19 25 Active amiodarone (PACERONE) 200 mg tabletIndication s:Paroxysmal atrial fibrillation (CMS/HCC),Unspec ified systolic (congestive) heart failure (CMS/HCC) TAKE 1 TABLET BY MOUTH EVERY DAY 90 tablet 1 01/18/20 25 Active torsemide (DEMADEX) 20 mg tabletIndication s:HFrEF (heart failure with reduced ejection fraction) (CMS/HCC),SOB (shortness of breath) Take 4 tablets (80 mg total) by mouth 1 (one) time each day. 120 each 01/24/20 25 026 Active amiodarone (PACERONE) 200 mg tablet Take 1 tablet (200 mg total) by mouth 1 (one) time each day. 05/23/20 24 025 Discontinued furosemide (LASIX) 40 mg tablet Take 1 tablet (40 mg total) by mouth 2 (two) times a day. 40mg twice a day for 4 days, then change to 40mg daily. 11/20/19 25 025 Discontinued furosemide (LASIX) 40 mg tabletIndication s:Paroxysmal atrial fibrillation (CMS/HCC),Unspec ified systolic (congestive) heart failure (CMS/HCC) TAKE 1 TABLET BY MOUTH EVERY DAY 90 tablet 3 01/08/20 25 025 Discontinued(Fo rmulary change) Active Problems Problem Noted Date Diagnosed Date Acute hypoxic respiratory failure 01/21/2025 Acute on chronic heart failu re with preserved ejection fraction (HFpEF) 11/17/2024 Acute on chronic congestive heart failure, unspecified heart failure type 11/17/2024 Atrial flutter 08/07/2024 Acute on chronic heart failu re with preserved ejection fraction 08/07/2024 A-fib 05/23/2024 Overview (08/07/2024): Last Assessment & Plan: She continues to be anticoagulated on full dose Eliquis as her weight is greater than 60 kg and her age is less than 80. Her [id number] score is 6 for heart failure, hypertension, age greater than 75 and vascular disease as well as gender modifier. Educated on risks and benefits of continuing with anticoagulation including increased risk for hemorrhage and decreased risk for stroke. Encouraged to seek emergent medical attention should the patient sustain a fall involving a head strike. The patient understands these risks and agrees to continue. Patient presents in atrial fibrillation today with ventricular rates in the 70s. Unfortunately, she is appears to be symptomatic since reverting to atrial fibrillation. We discussed antiarrhythmic therapy in the form of amiodarone with repeat cardioversion in the next few weeks. She was educated on the risks of amiodarone therapy including the potential negative impact it could have on her thyroid, liver and lungs. Subsequently I have ordered a thyroid level, LFTs as well as PFTs for baselines. Amiodarone also has the potential to be proarrhythmic and she will need to be monitored closely while therapy is initiated. She understands that there could be a need to discontinue amiodarone therapy should any of these levels be impacted negatively. At this time she will be loaded with amiodarone in hopes to restore sinus rhythm. Cardioversion to be scheduled in the next couple of weeks. We will discontinue digoxin. At this time she will continue on metoprolol and Cardizem. Assessment & Plan (01/23/2025 2:17 PM EDT): Denies perception of recurrence of arrhythmia. She presents in sinus rhythm today. She will continue to be anticoagulated on Eliquis for stroke reduction. Educated on risks and benefits of continuing with anticoagulation including increased risk for hemorrhage and decreased risk for stroke. Encouraged to seek emergent medical attention should the patient sustain a fall involving a head strike. The patient understands these risks and agrees to continue. Orders: ECG 12 lead Assessment & Plan (10/03/2024 11:48 AM EST): She denies perception of recurrence of arrhythmia. She continues on amiodarone for rhythm control. She is anticoagulated on Eliquis for stroke reduction. The patient is concerned regarding the increased cost of her Eliquis. She was given samples as well as coupon cards today. She was asked to explore the cost effectiveness of Xarelto or Pradaxa. We also did briefly discuss the Watchman procedure which she was interested in as well. She is going to reach out to her insurance company and let our office know what she would like to do. Educated on risks and benefits of continuing with anticoagulation including increased risk for hemorrhage and decreased risk for stroke. Encouraged to seek emergent medical attention should the patient sustain a fall involving a head strike. The patient understands these risks and agrees to continue. Orders: ECG 12 lead losartan (Cozaar) 100 mg tablet; Take 1 tablet (100 mg total) by mouth 1 (one) time each day. Basic metabolic panel; Future HTN (hypertension) 05/23/2024 Overview (08/07/2024): Last Assessment & Plan: Mildly elevated during today's exam with a reading of 140/80. She does appear to be mildly volume overloaded. I am adjusting her Lasix. She will continue on her other antihypertensive medications. Educated on the importance of diet lifestyle to help further assist in reducing blood pressure. The patient was encouraged to follow low-salt low-fat diet, make purposeful strides towards weight loss, and engage in routine aerobic exercise as tolerated. Assessment & Plan (10/03/2024 11:48 AM EST): Elevated during today's exam with a reading of 158/90. The patient also endorses experiencing readings consistently greater than 150 at home. Subsequently, I have increased her losartan to 100 mg. She will update BMP in 1 week. Educated on the importance of diet lifestyle to help further assist in reducing blood pressure. The patient was encouraged to follow low-salt low-fat diet, make purposeful strides towards weight loss, and engage in routine aerobic exercise as tolerated. Orders: losartan (Cozaar) 100 mg tablet; Take 1 tablet (100 mg total) by mouth 1 (one) time each day. Basic metabolic panel; Future PVD (peripheral vascular disease) 05/23/2024 Secondary hypercoagulable state 05/23/2024 HLD (hyperlipidemia) 05/23/2024 Overview (08/07/2024): Last Assessment & Plan: She will continue on her current dose of pravastatin 40 mg to be mindful of her dietary fat intake. We can consider updating fasting lipid profile prior to her next office visit unless already drawn by her PCP. Assessment & Plan (10/03/2024 11:48 AM EST): Continue statin therapy. Encouraged to be mindful of her dietary fat intake. Lower extremity edema 05/23/2024 Intermittent palpitations 05/23/2024 SOB (shortness of breath) 05/23/2024 Assessment & Plan (01/23/2025 2:17 PM EDT): See care plan for HFrEF. Orders: torsemide (DEMADEX) 20 mg tablet; Take 4 tablets (80 mg total) by mouth 1 (one) time each day. Basic metabolic panel; Future HFrEF (heart failure with reduced ejection fract ion) 05/23/2024 Overview (08/07/2024): Last Assessment & Plan: Echocardiogram performed during hospitalization revealed a reduction in her LVEF. 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 At this time she will increase her Lasix to 60 mg for the next 3 days. She will have blood work drawn on Monday. She will continue to perform daily weights. She will call our office should she begin to experience a 2 pound weight gain in 1 day or 5 pounds in 5 days accompanied by worsening peripheral edema, abdominal distention and shortness of breath. She was encouraged to follow a low-sodium diet. Assessment & Plan (01/23/2025 2:17 PM EDT): Patient is volume overloaded during our exam today as outlined above. We did discuss sending her to the emergency room for hospital admission with likely [...] go directly to the emergency room. The patient understands and agrees to this plan. If the patient has favorable response to medication change, we will likely keep her on torsemide 80 mg at least throughout the weekend with updated BMP to be performed early next week. We will also likely need to transition her metoprolol to carvedilol to help titrate GDMT for HFrEF as well as manage her blood pressure. Orders: torsemide (DEMADEX) 20 mg tablet; Take 4 tablets (80 mg total) by mouth 1 (one) time each day. Basic metabolic panel; Future Assessment & Plan (10/03/2024 11:48 AM EST): She is euvolemic upon exam today. Unfortunately, it does not appear that the patient ever scheduled her echocardiogram to further evaluate improvement in her LVEF since restoring sinus rhythm. Encouraged to continue to follow a low-sodium diet and perform daily weights. Patient will reach out to our office with a weight gain of 2 pounds in 1 day or 5 pounds in 5 days accompanied by worsening peripheral edema, shortness of breath or abdominal distention. Encounters Date Type Department Care Team Description 01/27/2025 Telephone [facility] [address] [address] Jayla Medina NP 01/23/2025 1:40 PM EDT Office Visit [facility] [address] [address] Jayla Medina NP Atrial fibrillation, unspecified type (CMS/HCC) (Primary Dx); HFrEF (heart failure with reduced ejection fraction) (CMS/HCC); SOB (shortness of breath) 11/16/2024 9:30 PM EST - 11/20/2024 1:25 PM EST Hospital Encounter [facility] [address] [place] [address] Tracy Fowler MD Jones, Christopher, MD Surendran, Anupama, MD Santoyo-Pacheco, Omar D, MD Kokosadze, Estate, MD Acute on chronic congestive heart failure, unspecified heart failure type (CMS/HCC) (Primary Dx); Acute respiratory failure with hypoxia (CMS/HCC) Discharge Disposition: Home or Self Care 11/09/2024 6:40 AM EST - 11/09/2024 11:48 AM EST Emergency [facility] [address] [place] [address] Zachery Hunter MD Shortness of breath (Primary Dx) Discharge Disposition: Home or Self Care from Last 3 Months Surgical History Surgery Date Site/Laterality Comments CARDIOVERSION WITH HUSEYIN CHOLECYSTECTOMY NEPHRECTOMY Right KNEE ARTHROSCOPY Right Medical History Medical History Date Comments Obesity DX:Obesity Secondary hypercoagulable state (CMS/HCC) DX:Secondary hypercoagulable state (HCC) PMR (polymyalgia rheumatica) (CMS/HCC) DX:PMR (polymyalgia rheumatica) (HCC) DM2 (diabetes mellitus, type 2) (CMS/HCC) DX:DM2 (diabetes mellitus, type 2) (HCC) Chronic heart failure with p reserved ejection fraction (HFpEF) (CMS/HCC) Paroxysmal atrial fibrillation (CMS/HCC) Hypercholesteremia Hypertension Social History Tobacco Use Types Packs/Day Years [...] care for your loved ones. For example, child nutrition manager or elderly care for an older adult? [...] Orientation Straight 11/16/2024 10 :19 PM EST Obstetrics History Last Filed Vital Signs Vital Sign Reading Time Taken Comments Blood Pressure 140/90 01/23/2025 1:34 PM EDT Pulse 56 01/23/2025 1:34 PM EDT Temperature 36.5 ??C (97.7 ??F) 11/20/2024 9:45 AM ES T Respiratory Rate 22 11/20/2024 9:45 AM EST Oxygen Saturation 92% 11/20/2024 9:45 AM EST Inhaled Oxygen Concentration - - Weight 89.8 kg (198 lb) 01/23/2025 1:34 PM EDT Height 152.4 cm (5') 01/23/2025 1:34 PM EDT Body Mass Index 38.67 01/23/2025 1:34 PM EDT Plan of Treatment Upcoming Encounters Date Type Department Care Team (Late st Contact Info) Description 02/17/2025 9:10 AM EDT Office Visit [facility] [address] [facility] [address] [place] [id number] Jayla Medina NP [address] [place] [address] Health Maintenance Due Date Last Done Comments Diabetes: Annual Foot Exam 1955 Diabetes: Annual Retina Eye Exam 1955 DTaP,Tdap,and Td Vaccines (1 - Tdap) 1966 Pneumococcal Vaccine: 50+ Years (1 of 2 - PCV) 1966 Zoster Vaccines (1 of 2) 1997 RSV Immunization Patients 60+ Years Old (1 - 1-dose 75+ series) 2022 Cholesterol Screening (Lipid Panel) 10/16/2022 Depression Screening 10/16/2022 Hepatitis C Screening 10/16/2022 Medicare Annual Wellness Visit 10/16/2022 Osteoporosis Screening (Bone Density Screening) 10/16/2022 COVID-19 Vaccine ( season) 2024 11/01/2022, 03/16/2022, 12/16/2021, Additional history exists Influenza Vaccine (#1) 2024 08/27/2018 Diabetes: Annual Urine Albumin-Creatinine Ratio (uACR) 11/22/2024 Diabetes: Blood Sugar Control Test (HGBA1C) 11/22/2024 Social Influencers of Health Screening 11/17/2025 11/17/2024 Diabetes: Annual GFR (Glomerular Filtration Rate) 11/20/2025 11/20/2024, 11/19/2024, 11/18/2024, Additional history exists Falls Risk Assessment 11/20/2025 11/20/2024 Hypertension/CHF/CAD Annual BMP Blood Test 11/20/2025 11/20/2024, 11/19/2024, 11/18/2024, Additional history exists HIB Vaccines Aged Out No longer eligi ble based on patient's age to complete this topic HPV Vaccines Aged Out No longer eligi ble based on patient's age to complete this topic Hepatitis A Vaccines Aged Out No long er eligible based on patient's age to complete this topic Hepatitis B Vaccines Aged Out No long er eligible based on patient's age to complete this topic IPV Vaccines Aged Out No longer eligi ble based on patient's age to complete this topic MMR Vaccines Aged Out No longer eligi ble based on patient's age to complete this topic Meningococcal ACWY Vaccine Aged Out N o longer eligible based on patient's age to complete this topic Meningococcal B Vacine Aged Out No lo nger eligible based on patient's age to complete this topic RSV Immunization Patients Under 20 months Aged Out No longer eligible based on patient's age to complete this topic Varicella Vaccines Aged Out No longer eligible based on patient's age to complete this topic Procedures Procedure Name Priority Date/Time Associated Diagnosis Comments ECG 12-LEAD Routine 01/23/2025 2:18 PM EDT Atrial fibrillation, unspecified type (CMS/HCC) POCT GLUCOSE BLOOD Routine 11/20/2024 11 :17 AM EST POCT GLUCOSE BLOOD Routine 11/20/2024 7: 50 AM EST LAVENDER - EDTA Routine 11/20/2024 5:28 AM EST EXTRA TUBES Routine 11/20/2024 5:28 AM EST BASIC METABOLIC PANEL Routine 11/20/2024 5:28 AM EST POCT GLUCOSE BLOOD Routine 11/19/2024 8: 24 PM EST POCT GLUCOSE BLOOD Routine 11/19/2024 4: 21 PM EST POCT GLUCOSE BLOOD Routine 11/19/2024 11 :40 AM EST POCT GLUCOSE BLOOD Routine 11/19/2024 7: 37 AM EST CBC WITH AUTO DIFFERENTIAL Routine 11/19/2024 6:33 AM EST CBC AND DIFFERENTIAL Routine 11/19/2024 6:33 AM EST BASIC METABOLIC PANEL Routine 11/19/2024 6:33 AM EST POCT GLUCOSE BLOOD Routine 11/18/2024 8: 36 PM EST POCT GLUCOSE BLOOD Routine 11/18/2024 4: 27 PM EST POCT GLUCOSE BLOOD Routine 11/18/2024 11 :15 AM EST POCT GLUCOSE BLOOD Routine 11/18/2024 7: 37 AM EST CBC WITH AUTO DIFFERENTIAL Routine 11/18/2024 6:33 AM EST PHOSPHORUS Routine 11/18/2024 6:33 AM EST MAGNESIUM Routine 11/18/2024 6:33 AM EST CBC AND DIFFERENTIAL Routine 11/18/2024 6:33 AM EST BASIC METABOLIC PANEL Routine 11/18/2024 6:33 AM EST ECG 12-LEAD STAT 11/17/2024 7:40 PM EST POCT GLUCOSE BLOOD Routine 11/17/2024 7: 40 PM EST POCT GLUCOSE BLOOD Routine 11/17/2024 4: 33 PM EST POCT GLUCOSE BLOOD Routine 11/17/2024 11 :40 AM EST POCT GLUCOSE BLOOD Routine 11/17/2024 9: 05 AM EST CBC WITH AUTO DIFFERENTIAL Routine 11/17/2024 4:58 AM EST MAGNESIUM Routine 11/17/2024 4:58 AM EST CBC AND DIFFERENTIAL Routine 11/17/2024 4:58 AM EST BASIC METABOLIC PANEL Routine 11/17/2024 4:58 AM EST ECG ANNOTATED 11/17/2024 TROPONIN I HIGH SENSITIVITY STAT 11/16/2024 11:49 PM EST VENOUS BLOOD GAS STAT 11/16/2024 10:4 7 PM EST CBC WITH AUTO DIFFERENTIAL STAT 11/16/2024 10:47 PM EST B-TYPE NATRIURETIC PEPTIDE STAT 11/16/2024 10:47 PM EST MAGNESIUM STAT 11/16/2024 10:47 PM EST LIPASE STAT 11/16/2024 10:47 PM EST COMPREHENSIVE METABOLIC PANEL STAT 11/16/2024 10:47 PM EST CBC AND DIFFERENTIAL STAT 11/16/2024 10:47 PM EST TROPONIN I HIGH SENSITIVITY STAT 11/16/2024 10:47 PM EST XR CHEST 1 VIEW STAT 11/16/2024 10:07 PM EST RESPIRATORY VIRUS PANEL MOLECULAR STUDY STAT 11/16/2024 9:52 PM EST ECG 12-LEAD STAT 11/16/2024 9:42 PM EST XR CHEST 2 VIEWS STAT 11/09/2024 9:18 AM EST RESPIRATORY VIRUS PANEL MOLECULAR STUDY STAT 11/09/2024 8:52 AM EST B-TYPE NATRIURETIC PEPTIDE STAT 11/09/2024 8:51 AM EST TROPONIN I HIGH SENSITIVITY STAT 11/09/2024 8:51 AM EST COMPREHENSIVE METABOLIC PANEL STAT 11/09/2024 8:51 AM EST CBC WITH AUTO DIFFERENTIAL STAT 11/09/2024 8:51 AM EST CBC AND DIFFERENTIAL STAT 11/09/2024 8:51 AM EST ECG 12-LEAD STAT 11/09/2024 6:53 AM EST ECG ANNOTATED 11/09/2024 from Last 3 Months Results * ECG 12 lead (01/23/2025 2:18 PM EDT) Only the most recent of4 resultswithin the time period is included. Ventricular Rate ECG 56 BPM GEMUSE Atrial Rate 56 BPM GEMUSE P-R Interval 146 ms GEMUSE QRS Duration 92 ms GEMUSE Q-T Interval 528 ms GEMUSE QTc 509 ms GEMUSE P Wave [place] -28 degrees GEMUSE R [place] 1 degrees GEMUSE T [place] 151 degrees GEMUSE ECG Interpretation Sinus bradycardia Left ventricular hypertrophy with repolarization abnormality Prolonged QT Abnormal ECG When compared with ECG of 17-NOV-2024 19:40, No significant change was found Confirmed by Constantin URENA YUFENG ([id number]) on 01/23/2025 2:48:47 PM GEMUSE 01/23/2025 1:42 PM EDT 01/23/2025 2:48 PM EDT Jayla Medina NP ECG ORDERABLES Edited Result - Final GEMUSE * (ABNORMAL) POCT Glucose, blood (11/20/2024 11:17 AM EST) Only the most recent of14 resultswithin the time period is included. Glucose POCT 311(H) 70 - 100 mg/dL 11/20/2024 11:[address] [facility] Blood Capillary blood specimen / Unknown 11/20/2024 11:17 AM EST 11/20/2024 11:19 AM EST us Jet Prather MD LAB POINT OF CARE TE ST DOCKED DEVICE UNSOLICITED RESULTS Final Result Performing Organization Address [facility]/ZIP Co de Phone Number [facility] [address] [place] [address], [place] [phone] * Lavender tube (11/20/2024 5:28 AM EST) [facility] Extra Tube Hold for add-ons. 11/20/2024 9:01 AM [facility] Comment:Auto resulted. Blood Venous blood specimen / Unknown 11/20/2024 5:28 AM EST 11/20/2024 7:32 AM EST us Jet Prather MD LAB BLOOD ORDERABLES Final R esult Performing Organization Address [facility]/ZIP Co de Phone Number [facility] [address] [place] [address], [place] [phone] * (ABNORMAL) Basic metabolic panel (11/20/2024 5:28 AM EST) Only the most recent of4 resultswithin the time period is included. [facility] Sodium 137 133 - 145 mmol/L LAB CHEMISTRY METHOD 11/20/2024 8:24 AM [facility] Potassium 3.8 3.5 - 5.5 mmol/L LAB CHEMISTRY METHOD 11/20/2024 8:24 AM [facility] Chloride 99 96 - 110 mmol/L LAB CHEMISTRY METHOD 11/20/2024 8:24 AM [facility] CO2 31 21 - 32 mmol/L LAB CHEMISTRY METHOD 11/20/2024 8:24 AM [facility] Anion Gap 7 3 - 11 LAB CHEMISTRY METHOD 11/20/2024 8:24 AM [facility] Glucose 189(H) 70 - 100 mg/dL LAB CHEMISTRY METHOD 11/20/2024 8:24 AM [facility] BUN 29(H) 5 - 25 mg/dL LAB CHEMISTRY METHOD 11/20/2024 8:24 AM [facility] Creatinine 1.29(H) 0.50 - 1.10 mg/dL LAB CHEMISTRY METHOD 11/20/2024 8:24 AM [facility] eGFR 43(L) >=60 mL/min/1. 73m2 LAB CHEMISTRY METHOD 11/20/2024 8:24 AM [facility] Comment:Calculation based on the??Chronic Kidney Disease Epidemiology Collaboration (CKD-EPI) equation refit??without adjustment for race. BUN/Creatinine Ratio 22.5 LAB CHEMISTRY METHOD 11/20/2024 8:24 AM [facility] Calcium 9.0 8.5 - 10.5 mg/dL LAB CHEMISTRY METHOD 11/20/2024 8:24 AM [facility] Blood Venous blood specimen / Unknown Venipuncture / Unknown 11/20/2024 5:28 AM EST 11/20/2024 7:30 AM EST us Estate Crescencio CAZARES LAB BLOOD ORDERABLES Final R esult [facility] [address] [place] [address], * (ABNORMAL) CBC auto differential (11/19/2024 6:33 AM EST) Only the most recent of5 resultswithin the time period is included. WBC 10.7 4.8 - 10.8 K/mcL LAB HEMETOLOGY METHOD 11/19/2024 7:23 AM [facility] RBC 4.00 3.80 - 4.80 M/mcL LAB HEMETOLOGY METHOD 11/19/2024 7:23 AM [facility] Hemoglobin 11.9 11.5 - 16.0 g/dL LAB HEMETOLOGY METHOD 11/19/2024 7:23 AM [facility] Hematocrit 36.6 35.0 - 47.0 % LAB HEMETOLOGY METHOD 11/19/2024 7:23 AM [facility] MCV 92.7 79.0 - 98.0 FL LAB HEMETOLOGY METHOD 11/19/2024 7:23 AM [facility] MCH 30.1 27.0 - 32.0 pcg LAB HEMETOLOGY METHOD 11/19/2024 7:23 AM [facility] MCHC 32.5 32.0 - 37.0 g/dL LAB HEMETOLOGY METHOD 11/19/2024 7:23 AM [facility] RDW 12.3 11.0 - 15.0 % LAB HEMETOLOGY METHOD 11/19/2024 7:23 AM [facility] Platelets 441(H) 130 - 400 K/mcL LAB HEMETOLOGY METHOD 11/19/2024 7:23 AM [facility] MPV 10.4 7.0 - 11.0 FL LAB HEMETOLOGY METHOD 11/19/2024 7:23 AM [facility] NRBC 0.0 <1.0 % LAB HEMETOLOGY METHOD 11/19/2024 7:23 AM [facility] NRBC Absolute 0.00 <0.10 K/mcL LAB HEMETOLOGY METHOD 11/19/2024 7:23 AM [facility] Neutrophils Relative 68.0 % LAB HEMETOLOGY METHOD 11/19/2024 7:23 AM [facility] Lymphocytes Relative 19.5 % LAB HEMETOLOGY METHOD 11/19/2024 7:23 AM [facility] Monocytes Relative 9.7 % LAB HEMETOLOGY METHOD 11/19/2024 7:23 AM [facility] Eosinophils Relative 2.1 % LAB HEMETOLOGY METHOD 11/19/2024 7:[address] [facility] Basophils Relative 0.3 % LAB HEMETOLOGY METHOD 11/19/2024 7:23 AM [facility] Immature Granulocytes Relative 0.4 % LAB HEMETOLOGY METHOD 11/19/2024 7:23 AM [facility] Neutrophils Absolute 7.29(H) 1.50 - 7.00 K/mcL LAB HEMETOLOGY METHOD 11/19/2024 7:23 AM [facility] Lymphocytes Absolute 2.09 1.00 - 5.00 K/mcL LAB HEMETOLOGY METHOD 11/19/2024 7:23 AM [facility] Monocytes Absolute 1.04(H) 0.20 - 1.00 K/mcL LAB HEMETOLOGY METHOD 11/19/2024 7:23 AM [facility] Eosinophils Absolute 0.22 0.00 - 0.50 K/mcL LAB HEMETOLOGY METHOD 11/19/2024 7:23 AM [facility] Basophils Absolute 0.03 0.00 - 0.20 K/mcL LAB HEMETOLOGY METHOD 11/19/2024 7:23 AM [facility] Immature Granulocytes Absolute 0.04(H) 0.00 - 0.03 K/mcL LAB HEMETOLOGY METHOD 11/19/2024 7:23 AM [facility] Blood Venous blood specimen / Unknown Venipuncture / Unknown 11/19/2024 6:33 AM EST 11/19/2024 6:59 AM EST us [employer] Crescencio CAZARES LAB BLOOD ORDERABLES Final R esult [facility] [address] [place] [address], * Phosphorus (11/18/2024 6:33 AM EST) [facility] Phosphorus 3.7 2.5 - 4.5 mg/dL LAB CHEMISTRY METHOD 11/18/2024 7:[address] [facility] Blood Venous blood specimen / Unknown Venipuncture / Unknown 11/18/2024 6:33 AM EST 11/18/2024 7:11 AM EST us Crispin Garcia MD LAB BLOOD ORDERABLES F inal Result Performing Organization Address City/[facility]/ZIP Co de Phone Number [facility] [facility] [address] [place] [address], [place] [phone] * Magnesium (11/18/2024 6:33 AM EST) Only the most recent of3 resultswithin the time period is included. [facility] Magnesium 1.9 1.9 - 2.6 mg/dL LAB CHEMISTRY METHOD 11/18/2024 7:[address] [facility] Blood Venous blood specimen / Unknown Venipuncture / Unknown 11/18/2024 6:33 AM EST 11/18/2024 7:11 AM EST us Crispin Garcia MD LAB BLOOD ORDERABLES F inal Result Performing Organization Address City/[facility]/ZIP Co de Phone Number [facility] [address] [place] [address], [place] [phone] * ECG-Annotated (11/17/2024) Only the most recent of2 resultswithin the time period is included. Provider Onbase ECG ORDERABLES Final Result * (ABNORMAL) Troponin I high sensitivity (11/16/2024 11:49 PM EST) Only the most recent of3 resultswithin the time period is included. [facility] High Sensitivity Troponin I 103(H) <=54 ng/L LAB CHEMISTRY METHOD 11/17/2024 12:[address] [facility] Blood Venous blood specimen / Unknown Venipuncture / Unknown 11/16/2024 11:49 PM EST 11/16/2024 11:[address] [facility] - 11/17/2024 12:28 AM EST High levels of biotin in samples may falsely decrease hsTroponin values. ??Use caution when interpreting hsTroponin results in patients taking biotin who exhibit renal impairment (eGFR <60) or in patients taking more than 20 mg/day of biotin. Lorne Kaba DO LAB BLOOD ORDERABLES Final Resu lt Performing Organization Address City/[facility]/ZIP Co de Phone Number [facility] [address] [place] [address], [place] [phone] * (ABNORMAL) B-type natriuretic peptide (11/16/2024 10:47 PM EST) Only the most recent of2 resultswithin the time period is included. BNP 1,082(H) <=100 pcg/mL LAB CHEMISTRY METHOD 11/16/2024 11:[address] [facility] Blood Venous blood specimen / Unknown Venipuncture / Unknown 11/16/2024 10:47 PM EST 11/16/2024 10:55 PM EST Lorne Kaba DO LAB BLOOD ORDERABLES Final Resu lt Performing Organization Address City/[facility]/ZIP Co de Phone Number [facility] [address] [place] [address], [place] [phone] * Lipase (11/16/2024 10:47 PM EST) Lipase 17 13 - 75 unit/L LAB CHEMISTRY METHOD 11/16/2024 11:[address] [facility] Blood Venous blood specimen / Unknown Venipuncture / Unknown 11/16/2024 10:47 PM EST 11/16/2024 10:55 PM EST us Lorne Kaba DO LAB BLOOD ORDERABLES Final Resu lt Performing Organization Address City/[facility]/ZIP Co de Phone Number [facility] [address] [place] [address], [place] [phone] * (ABNORMAL) Venous blood gas (11/16/2024 10:47 PM EST) pH, Edwin 7.46(H) 7.32 - 7.42 pH 11/16/2024 11:[address] [facility] pCO2, Edwin 43 41 - 51 mmHg 11/16/2024 11:[address] [facility] pO2, Edwin 77(H) 25 - 40 mmHg 11/16/2024 11:02 PM [facility] HCO3, Venous 29.6(H) 22.0 - 26.0 mmol/L 11/16/2024 11:02 PM [facility] O2 Sat, Edwin 97.2 % 11/16/2024 11:[address] [facility] Base Excess, Edwin 6.1(H) -2.0 - 2.0 mmol/L 11/16/2024 11:02 PM [facility] Blood Venous blood specimen / Unknown Venipuncture / Unknown 11/16/2024 10:47 PM EST 11/16/2024 10:54 PM EST us Oscar ROQUE LAB BLOOD ORDERABLES Final Re sult [facility] [address] [place] [address], [place] [phone] * (ABNORMAL) Comprehensive metabolic panel (11/16/2024 10:47 PM EST) Only the most recent of2 resultswithin the time period is included. Pathologist [facility] Sodium 140 133 - 145 mmol/L LAB CHEMISTRY METHOD 11/16/2024 11:24 PM [facility] Potassium 3.7 3.5 - 5.5 mmol/L LAB CHEMISTRY METHOD 11/16/2024 11:24 PM [facility] Chloride 107 96 - 110 mmol/L LAB CHEMISTRY METHOD 11/16/2024 11:24 PM [facility] CO2 27 21 - 32 mmol/L LAB CHEMISTRY METHOD 11/16/2024 11:24 PM [facility] Anion Gap 6 3 - 11 LAB CHEMISTRY METHOD 11/16/2024 11:24 PM [facility] Glucose 268(H) 70 - 100 mg/dL LAB CHEMISTRY METHOD 11/16/2024 11:24 PM [facility] BUN 22 5 - 25 mg/dL LAB CHEMISTRY METHOD 11/16/2024 11:24 PM [facility] Creatinine 1.11(H) 0.50 - 1.10 mg/dL LAB CHEMISTRY METHOD 11/16/2024 11:24 PM [facility] eGFR 51(L) >=60 mL/min/1. 73m2 LAB CHEMISTRY METHOD 11/16/2024 11:24 PM [facility] Comment:Calculation based on the??Chronic Kidney Disease Epidemiology Collaboration (CKD-EPI) equation refit??without adjustment for race. BUN/Creatinine Ratio 19.8 LAB CHEMISTRY METHOD 11/16/2024 11:24 PM [facility] Calcium 9.0 8.5 - 10.5 mg/dL LAB CHEMISTRY METHOD 11/16/2024 11:24 PM [facility] AST (SGOT) 13 10 - 42 unit/L LAB CHEMISTRY METHOD 11/16/2024 11:24 PM [facility] ALT (SGPT) 14 10 - 60 unit/L LAB CHEMISTRY METHOD 11/16/2024 11:24 PM [facility] Alkaline Phosphatase 116 42 - 121 unit/L LAB CHEMISTRY METHOD 11/16/2024 11:[address] [facility] Total Protein 6.2 6.0 - 8.0 g/dL LAB CHEMISTRY METHOD 11/16/2024 11:[address] [facility] Albumin 2.5(L) 3.2 - 5.0 g/dL LAB CHEMISTRY METHOD 11/16/2024 11:[address] [facility] Total Bilirubin 0.5 0.0 - 1.4 mg/dL LAB CHEMISTRY METHOD 11/16/2024 11:[address] [facility] Blood Venous blood specimen / Unknown Venipuncture / Unknown 11/16/2024 10:47 PM EST 11/16/2024 10:55 PM EST us Lorne Kaba DO LAB BLOOD ORDERABLES Final Resu lt [facility] [address] [place] [address], * XR Chest 1 View (11/16/2024 10:07 PM EST) Anatomical Region Laterality Modality Body Radiographic Rachele ging 11/17/2024 9:27 AM EST Impressions 11/17/2024 9:28 AM EST FINDINGS/IMPRESSION: Pulmonary edema with cardiac silhouette enlargement. ??Small bilateral pleural effusions with adjacent atelectasis. ??No pneumothorax. ??Degenerative changes seen throughout the bones -------- FINAL REPORT -------- Dictated By: ENOCH JAY Dictated Date: 11/17/2024 09:27 ET Assigned Physician: ENOCH JAY Reviewed and Electronically Signed By: ENOCH JAY Signed Date: 11/17/2024 09:28 ET Workstation ID: [id number] Transcribed By: Self Edit Transcribed Date: 11/17/2024 09:27 ET Narrative 11/17/2024 9:28 AM EST XR CHEST 1 VIEW INDICATION: ??Pain TECHNIQUE: XR CHEST 1 VIEW COMPARISON: 11/09/2024 Procedure Note Enoch Jay MD - 11/17/2024 XR CHEST 1 VIEW INDICATION: Pain TECHNIQUE: XR CHEST 1 VIEW COMPARISON: 11/09/2024 IMPRESSION: FINDINGS/IMPRESSION: Pulmonary edema with cardiac silhouette enlargement.Small bilateral pleural effusions with adjacent atelectasis. Nopneumothorax. Degenerative changes seen throughout the bones -------- FINAL REPORT -------- Dictated By: ENOCH JAY Dictated Date: 11/17/2024 09:27 ET Assigned Physician: ENOCH JAY Reviewed and Electronically Signed By: ENOCH JAY Signed Date: 11/17/2024 09:28 ET Workstation ID: [id number] Transcribed By: Self Edit Transcribed Date: 11/17/2024 09:27 ET Wil Calderon MD IMG XR PROCEDURES Final Res ult * Respiratory virus panel molecular study (11/16/2024 9:52 PM EST) Only the most recent of2 resultswithin the time period is included. Adenovirus Detection by PCR Not Detected Not Detected LAB MICROBIOLOGY METHOD 11/16/2024 11:47 PM [facility] Influenza A PCR Not Detected Not Detected LAB MICROBIOLOGY METHOD 11/16/2024 11:47 PM [facility] Influenza B PCR Not Detected Not Detected LAB MICROBIOLOGY METHOD 11/16/2024 11:47 PM [facility] Coronavirus 229E Not Detected Not Detected LAB MICROBIOLOGY METHOD 11/16/2024 11:47 PM [facility] Coronavirus HKU1 Not Detected Not Detected LAB MICROBIOLOGY METHOD 11/16/2024 11:47 PM [facility] Coronavirus OC43 Not Detected Not Detected LAB MICROBIOLOGY METHOD 11/16/2024 11:47 PM [facility] Coronavirus NL63 Not Detected Not Detected LAB MICROBIOLOGY METHOD 11/16/2024 11:47 PM [facility] Parainfluenza Virus 1 Not Detected Not Detected LAB MICROBIOLOGY METHOD 11/16/2024 11:[address] [facility] Parainfluenza Virus 2 Not Detected Not Detected LAB MICROBIOLOGY METHOD 11/16/2024 11:47 PM [facility] Parainfluenza Virus 3 Not Detected Not Detected LAB MICROBIOLOGY METHOD 11/16/2024 11:47 PM [facility] Parainfluenza Virus 4 Not Detected Not Detected LAB MICROBIOLOGY METHOD 11/16/2024 11:47 PM [facility] RSV PCR Not Detected Not Detected LAB MICROBIOLOGY METHOD 11/16/2024 11:47 PM [facility] Human Metapneumovirus A and B Not Detected Not Detected LAB MICROBIOLOGY METHOD 11/16/2024 11:47 PM [facility] Rhinovirus/Entero virus Not Detected Not Detected LAB MICROBIOLOGY METHOD 11/16/2024 11:47 PM [facility] Bordetella pertussis Not Detected Not Detected LAB MICROBIOLOGY METHOD 11/16/2024 11:47 PM [facility] Bordetella parapertussis Not Detected Not Detected LAB MICROBIOLOGY METHOD 11/16/2024 11:47 PM [facility] Mycoplasma pneumo by PCR Not Detected Not Detected LAB MICROBIOLOGY METHOD 11/16/2024 11:47 PM [facility] Chlamydia pneumoniae Not Detected Not Detected LAB MICROBIOLOGY METHOD 11/16/2024 11:47 PM [facility] SARS COV-2 Not Detected Not Detected LAB MICROBIOLOGY METHOD 11/16/2024 11:47 PM [facility] Swab Both anterior nares / Unknown Non-blood Collection / Unknown 11/16/2024 9:52 PM EST 11/16/2024 10:55 PM EST [facility] - 11/16/2024 11:47 PM EST Testing was performed using the Antriae Respiratory Pathogen PCR Assay. All results must be correlated with the clinical findings. Results should not be used as the sole basis for diagnosis. False Negative results may occur from the presence of sequence variants in the region targeted by the assay or the presence of inhibitors. Results may be affected by concurrent antiviral/antimicrobial therapy or levels of organisms that are below the limit of detection. Oscar ROQUE LAB MICROBIOLOGY - GENERAL OR DERABLES Final Result [facility] [address] [place] [address], * XR Chest 2 Views (11/09/2024 9:18 AM EST) Anatomical Region Laterality Modality Body Radiographic Rachele ging 11/09/2024 9:21 AM EST Impressions 11/09/2024 9:24 AM EST Cardiomegaly with mild CHF. Similar findings were seen on the previous chest x- ray 05/28/2024 -------- FINAL REPORT -------- Dictated By: Braulio Pulliam Dictated Date: 11/09/2024 09:21 ET Assigned Physician: Braulio Pulliam Reviewed and Electronically Signed By: Braulio Pulliam Signed Date: 11/09/2024 09:24 ET Workstation ID: [id number] Transcribed By: Self Edit Transcribed Date: 11/09/2024 09:21 ET Narrative 11/09/2024 9:24 AM EST EXAMINATION: Chest 2 views. CLINICAL INDICATION: Dyspnea and nausea. COMPARISON: Chest 05/28/2024. FINDINGS: The lungs are expanded without acute consolidation. There is cardiomegaly with increased pulmonary vascularity suggestive of CHF. No pleural effusion seen. No gross bony abnormality. Procedure Note Braulio Pulliam MD - 11/09/2024 EXAMINATION: Chest 2 views. CLINICAL INDICATION: Dyspnea and nausea. COMPARISON: Chest 05/28/2024. FINDINGS: The lungs are expanded without acute consolidation. There iscardiomegaly with increased pulmonary vascularity suggestive of CHF. Nopleural effusion seen. No gross bony abnormality. IMPRESSION: Cardiomegaly with mild CHF. Similar findings were seen on the previouschest x- ray 05/28/2024 -------- FINAL REPORT -------- Dictated By: Braulio Pulliam Dictated Date: 11/09/2024 09:21 ET Assigned Physician: Braulio Pulliam Reviewed and Electronically Signed By: Braulio Pulliam Signed Date: 11/09/2024 09:24 ET Workstation ID: [id number] Transcribed By: Self Edit Transcribed Date: 11/09/2024 09:21 ET us Andres Darling MD IMG XR PROCEDURES Final Res ult from Last 3 Months Insurance [employer] Advance Directives * Full Code - Default (Latest Code Status on File) Date Activated Date Inactivated Comments 11/17/2024 12:48 AM 11/20/2024 3:28 PM This is order is used when code status has not been discussed with the patient, or code status is otherwise unknown/unconfirmed To update the patient's code status, place a code status order. Do not modify or discontinue any currently active code status orders. Care Teams Press Department Manager Relationship Specialty Start Date End Date Eveline Douglass MD [address] [place] [address] [place] [address] PCP - General 05/23/24
--- OUTSIDE RECORDS SUMMARY | 2025-02-04 08:08 | XMS_ITS | Encounter Summary ---
Author Organization [facility] Address [address] [place] [address] Care Team Providers Care Office Receptionist Name Role Phone Eveline Douglass MD Primary Care Provider [phone] Encounter Details Date Type Department Care Team (Late st Contact Info) Description 01/27/2025 Telephone [facility] - [facility] [address] [facility] [address] [place] [address] Jayla Medina NP [address] [place] [phone] Social History Tobacco Use Types Packs/Day Years [...] care for your loved ones. 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 [...] PM EST documented as of this encounter Functional Status * Are you [...] Answer Entry Date Author No 11/09/2024 8:15 AM Geeta Osborne RN documented in this encounter Progress Notes * Genaro Baird MA - 01/27/2025 3:47 PM EDT Faxed BMP to [facility] [phone] * Jayla Medina NP - 01/27/2025 8:04 AM EDT I spoke with the patient regarding improvement in symptoms since starting torsemide. She states that she is feeling well. She is noticing a significant decrease in her peripheral edema and an improvement in her breathing. At this time she will continue on her current dose of torsemide. I have askedher to please have a BMP and magnesium drawn. Genaro can we please send these lab slips to [facility] on [address] in [place] for the patient hours. documented in this encounter Plan of Treatment Upcoming Encounters Date Type Department Care Team (Late st Contact Info) Description 02/17/2025 9:10 AM EDT Office Visit [facility] [address] [address] Jayla Medina, DAVID [address] [phone] documented as of this encounter Visit Diagnoses Not on filedocumented in this encounter Care Teams Office Receptionist Relationship Specialty Start Date End Date Eveline Douglass MD [address] [place] [address] [place] [address] PCP - General 05/23/24 documented as of this encounter
[2025-02-04 10:16] LABS: MANUAL DIFF FLAG NO
[2025-02-04 10:26] LABS: Basophils Absolute Auto 0.1 X10*3/uL (0.0-0.2); Basophils Percent Auto 0.5 % (0-2); Eosinophils Absolute Auto 0.2 X10*3/uL (0.0-0.4); Eosinophils Percent Auto 2.1 % (0-4); Hematocrit 37.9 % (37.0-47.0); Hemoglobin 12.4 g/dl (12.0-16.0); Imm Gran Pct Auto 0.9 % (0.0-0.4); Lymphocytes Absolute Auto 2.7 X10*3/uL (1.2-4.9); Lymphocytes Percent Auto 24.1 % (20-40); Mean Corpuscular HGB Conc 32.7 g/dl (31.0-35.0); Mean Corpuscular Hemoglobin 29.3 pg (27.0-33.0); Mean Corpuscular Volume 89.6 fL (80.0-98.0); Mean Platelet Volume 10.3 fL (9.4-12.3); Monocytes Absolute Auto 1.2 X10*3/uL (0.1-1.2); Monocytes Percent Auto 10.9 % (2-11); Neutrophils Percent Auto 61.5 % (45-73); Platelet Count 541 X10*3/uL (160-400); Red Blood Count 4.23 X10*6/uL (4.20-5.50); Red Cell Distribution Width 13.6 % (11.0-16.0); White Blood Count 11.3 X10*3/uL (4.8-10.8)
[2025-02-04 11:04] LABS: Erythrocyte Sedimentation Rate 82 MM/HR (0-20)
[2025-02-04 11:11] LABS: Alanine Aminotransferase 7 U/L (0-31); Albumin Level 3.5 g/dL (3.5-5.0); Alkaline Phosphatase 129 U/L (39-117); Anion Gap 12 (12-20); Aspartate Amino Transferase 19 U/L (5-31); Bilirubin Total 0.3 mg/dL (0.0-1.0); Blood Urea Nitrogen 30 mg/dL (9-16); Calcium 9.6 mg/dL (8.4-10.2); Carbon Dioxide 27 mmol/L (22-29); Chloride 104 mmol/L (96-108); Estimated Glomerular Filt Rate 36; Glucose Random 141 mg/dL (60-115); Potassium 3.3 mmol/L (3.3-5.1); Sodium 140 mmol/L (135-145); Total Protein 7.6 g/dL (6.5-8.0)
== END 2025-02-04 07:58 | disposition home or self-care (01) ==
LOC: HO.HMGCLDS 07:57
PROVIDERS: PCP Internal Medicine; Visit Provider Student in an Organized Health Care Education/Training Program
DX: M35.3 Polymyalgia rheumatica (principal)
CPT/HCPCS: 36415; 80053; 85025; 85652; 86140

== ENCOUNTER 2025-02-24 06:32 | Outpatient (REF) | payer MEDICARE, SELFPAY ==
[2025-02-24 10:36] LABS: MANUAL DIFF FLAG NO
[2025-02-24 10:50] LABS: Basophils Percent Auto 0.4 % (0-2); Eosinophils Absolute Auto 0.3 X10*3/uL (0.0-0.4); Eosinophils Percent Auto 3.1 % (0-4); Hematocrit 37.3 % (37.0-47.0); Hemoglobin 11.8 g/dl (12.0-16.0); Imm Gran Abs Auto 0.04 X10*3/uL (0.00-0.03); Imm Gran Pct Auto 0.4 % (0.0-0.4); Lymphocytes Absolute Auto 2.5 X10*3/uL (1.2-4.9); Lymphocytes Percent Auto 25.3 % (20-40); Mean Corpuscular HGB Conc 31.6 g/dl (31.0-35.0); Mean Corpuscular Hemoglobin 28.3 pg (27.0-33.0); Mean Corpuscular Volume 89.4 fL (80.0-98.0); Mean Platelet Volume 10.3 fL (9.4-12.3); Monocytes Percent Auto 10.3 % (2-11); Neutrophils Percent Auto 60.5 % (45-73); Platelet Count 483 X10*3/uL (160-400); Red Blood Count 4.17 X10*6/uL (4.20-5.50); Red Cell Distribution Width 14.2 % (11.0-16.0)
[2025-02-24 11:03] LABS: Estimated Average Glucose 214 mg/dL; Hemoglobin A1C 238.3478 umol/L; Hemoglobin A1c % 9.1 % (<6.0); Total Hemoglobin (HGBA1C) 3116.7731 umol/L
[2025-02-24 11:15] LABS: Alanine Aminotransferase 6 U/L (0-31); Albumin Level 3.4 g/dL (3.5-5.0); Alkaline Phosphatase 132 U/L (39-117); Anion Gap 12 (12-20); Aspartate Amino Transferase 21 U/L (5-31); Bilirubin Total 0.3 mg/dL (0.0-1.0); Blood Urea Nitrogen 24 mg/dL (9-16); Calcium 9.6 mg/dL (8.4-10.2); Carbon Dioxide 26 mmol/L (22-29); Chloride 104 mmol/L (96-108); Cholesterol 161 mg/dL (<200); Estimated Glomerular Filt Rate 44; Glucose Random 205 mg/dL (60-115); HDL Cholesterol 62 mg/dL (>40); LDL Cholesterol Calculated 63 mg/dL (<100); Sodium 138 mmol/L (135-145); Total Protein 7.2 g/dL (6.5-8.0); Triglycerides 180 mg/dL (<150)
[2025-02-24 11:31] LABS: Vitamin B12 299 pg/mL (200-900)
[2025-02-24 12:00] LABS: Creatinine Urine 140.17 mg/dL; Microalbum/Creatinine Ratio Ur 24.2 ug/mg cr (<30)
== END 2025-02-24 06:33 | disposition home or self-care (01) ==
LOC: HO.HMGCLDS 06:32
PROVIDERS: PCP Internal Medicine; Referring Provider Nurse Practitioner Family; Visit Provider Internal Medicine
DX: E11.65 Type 2 diabetes mellitus with hyperglycemia (principal); I10 Essential (primary) hypertension; I48.91 Unspecified atrial fibrillation; M35.3 Polymyalgia rheumatica; I50.20 Unspecified systolic (congestive) heart failure; R06.02 Shortness of breath
CPT/HCPCS: 36415; 80053; 80061; 82043; 82570; 82607; 83036; 85025

== ENCOUNTER 2025-04-21 06:45 | Outpatient (REF) | payer MEDICARE, SELFPAY ==
[2025-04-21 09:51] LABS: B Type Natriuretic Peptide 452 pg/mL (<100)
[2025-04-21 10:51] LABS: Anion Gap 12 (12-20); Blood Urea Nitrogen 28 mg/dL (9-16); Calcium 9.3 mg/dL (8.4-10.2); Carbon Dioxide 30 mmol/L (22-29); Chloride 102 mmol/L (96-108); Estimated Glomerular Filt Rate 38; Glucose Random 149 mg/dL (60-115); Potassium 3.6 mmol/L (3.3-5.1); Sodium 140 mmol/L (135-145)
== END 2025-04-21 06:46 | disposition home or self-care (01) ==
LOC: HO.HMGCLDS 06:45
PROVIDERS: PCP Internal Medicine; Visit Provider Nurse Practitioner Family
DX: R06.02 Shortness of breath (principal); I48.91 Unspecified atrial fibrillation
CPT/HCPCS: 36415; 80048; 83880

== ENCOUNTER 2025-05-02 07:14 | Outpatient (REF) | payer MEDICARE, SELFPAY ==
[2025-05-02 10:31] LABS: B Type Natriuretic Peptide 422 pg/mL (<100)
== END 2025-05-02 07:15 | disposition home or self-care (01) ==
LOC: HO.HMGCLDS 07:14
PROVIDERS: PCP Internal Medicine; Visit Provider Nurse Practitioner Family
DX: I50.20 Unspecified systolic (congestive) heart failure (principal)
CPT/HCPCS: 36415; 83880

== ENCOUNTER 2025-05-23 07:05 | Outpatient (REF) | payer MEDICARE, SELFPAY ==
[2025-05-23 10:57] LABS: Anion Gap 16 (12-20); Blood Urea Nitrogen 35 mg/dL (9-16); Calcium 9.5 mg/dL (8.4-10.2); Carbon Dioxide 27 mmol/L (22-29); Chloride 97 mmol/L (96-108); Estimated Glomerular Filt Rate 32; Potassium 4.1 mmol/L (3.3-5.1); Sodium 136 mmol/L (135-145)
== END 2025-05-23 07:06 | disposition home or self-care (01) ==
LOC: HO.HMGCLDS 07:05
PROVIDERS: PCP Internal Medicine; Visit Provider Internal Medicine
DX: R06.02 Shortness of breath (principal)
CPT/HCPCS: 36415; 80048

== ENCOUNTER 2025-07-23 07:32 | Outpatient (REF) | payer MEDICARE, SELFPAY ==
--- OUTSIDE RECORDS SUMMARY | 2025-07-23 07:37 | XMS_ITS | Clinical Summary ---
Author Organization [address] [place] [address] Address [address] [place] [address] Phone Care Team Providers Care Poultry Hatchery Manager Name Role Phone Eveline Douglass MD Primary Care Provider Allergies No known active allergies Medications metoprolol tartrate (LOPRESSOR) 100 mg tablet Take [...] daily Active predniSONE (DELTASONE) 5 mg tablet Active insulin glargine,hum.rec .anlog (INSULIN GLARGINE SUBQ) Inject 12 Units into the skin at bedtime. Active losartan (Cozaar) 100 mg tabletIndication s:Atrial fibrillation, unspecified type (CMS/HCC V24, CMS/HCC V28),Primary hypertension Take 1 tablet (100 mg total) by mouth 1 (one) time each day. 30 each 10/03/20 24 025 Active amLODIPine (NORVASC) 5 mg tablet Take 1 tablet (5 mg total) by mouth 1 (one) time each day. 30 each 11/21/19 25 Active insulin lispro 100 unit/mL injection Inject under the skin 3 (three) times a day before meals. -Administer within 15 minutes of a meal 12-18 U's sliding scale TID Active Eliquis 5 mg tabletIndication s:Paroxysmal atrial fibrillation (CMS/HCC V24, CMS/HCC V28),Unspecified systolic (congestive) heart failure (CMS/HCC V24, CMS/HCC V28) TAKE 1 TABLET BY MOUTH TWICE A DAY 60 tablet 6 04/10/20 25 Active torsemide (DEMADEX) 20 mg tablet Take 4 tablets (80 mg total) by mouth 1 (one) time each day. 120 each 5 04/16/20 25 Active amiodarone (PACERONE) 200 mg tabletIndication s:Paroxysmal atrial fibrillation (CMS/HCC V24, CMS/HCC V28),Unspecified systolic (congestive) heart failure (CMS/HCC V24, CMS/HCC V28) TAKE 1 TABLET BY MOUTH EVERY DAY 90 tablet 1 07/17/20 25 Active amiodarone (PACERONE) 200 mg tabletIndication s:Paroxysmal atrial fibrillation (CMS/HCC V24, CMS/HCC V28),Unspecified systolic (congestive) heart failure (CMS/HCC V24, CMS/HCC V28) TAKE 1 TABLET BY MOUTH EVERY DAY 90 tablet 1 01/18/20 25 025 Discontinued Active Problems Problem Noted Date Diagnosed Date Acute hypoxic respiratory fa ilure (CMS/[facility] V24, CMS/HCC V28) 01/21/2025 Acute on chronic heart failu re with preserved ejection fraction (HFpEF) (CMS/[facility] V24, CMS/[facility] V28) 11/17/2024 Acute on chronic congestive heart failure, unspecified heart failure type (CMS/HCC V24, CMS/HCC V28) 11/17/2024 Atrial flutter (CMS/[facility] V24, CMS/[facility] V28) 2023 Assessment & Plan (04/28/2025 3:55 PM EDT): Denies perception of arrhythmia. Continues to be anticoagulated on full dose Eliquis as her weight is greater than 60 kg and her age is less than 80 years. Educated on risks and benefits of continuing with anticoagulation including increased risk for hemorrhage and decreased risk for stroke. Encouraged to seek emergent medical attention should the patient sustain a fall involving a head strike. The patient understands these risks and agrees to continue. She is on amiodarone for rhythm control. Acute on chronic heart failu re with preserved ejection fraction (CMS/[facility] V24, CMS/[facility] V28) 08/07/2024 A-fib (CMS/HCC V24, CMS/[facility] V28) 05/23/2024 Overview (08/07/2024): Last Assessment & Plan: She continues to be anticoagulated on full dose Eliquis as her weight is greater than 60 kg and her age is less than 82. Her [id number] score is 6 for heart failure, hypertension, [...] on metoprolol and Cardizem. Assessment & Plan (02/17/2025 12:02 PM EDT): Denies perception of arrhythmia . Continue current dose of amiodarone for rhythm control. Eliquis for stroke reduction. Educated on risks and benefits of continuing with anticoagulation including increased risk for hemorrhage and decreased risk for stroke. Encouraged to seek emergent medical attention should the patient sustain a fall involving a head strike. The patient understands these risks and agrees to continue. Assessment & Plan (01/23/2025 2:17 PM EDT): [...] aerobic exercise as tolerated. Assessment & Plan (04/28/2025 3:55 PM EDT): 144/70 during exam today likely in setting of volume overload. We have titrated her torsemide as outlined in HFrEF care plan. Continue amlodipine, losartan and metoprolol. Educated on the importance of diet lifestyle to help further assist in reducing blood pressure. The patient was encouraged to follow low-salt low-fat diet, make purposeful strides towards weight loss, and engage in routine aerobic exercise as tolerated. Assessment & Plan (02/17/2025 12:02 PM EDT): Elevated during today's exam however she has not taker her medications. Educated on the importance of diet [...] metabolic panel; Future PVD (peripheral vascular disease) ([facility] V24) 05/23/2024 Secondary hypercoagulable state ([facility] V24) HLD (hyperlipidemia) 05/23/2024 Overview (08/07/2024): Last Assessment & Plan: She will continue on her current dose of pravastatin 40 mg to be mindful of her dietary fat intake. We can consider updating fasting lipid profile prior to her next office visit unless already drawn by her PCP. Assessment & Plan (04/28/2025 3:55 PM EDT): She will continue on her current dose of pravastatin 40 mg be mindful of her dietary fat intake. Assessment & Plan (10/03/2024 11:48 AM EST): Continue statin therapy. Encouraged to be mindful of her dietary fat intake. Lower extremity edema 05/23/2024 Intermittent palpitations 05/23/2024 SOB (shortness of breath) 05/23/2024 Assessment & Plan (02/17/2025 12:02 PM EDT): Change in her diuretic therapy as outline above. Orders: Basic metabolic panel; Future furosemide (LASIX) 40 mg tablet; Take 3 tablets (120 mg total) by mouth 1 (one) time each day. Assessment & Plan (01/23/2025 2:17 PM EDT): See care plan for HFrEF. Orders: torsemide (DEMADEX) 20 mg tablet; Take 4 tablets (80 mg total) by mouth 1 (one) time each day. Basic metabolic panel; Future HFrEF (heart failure with re duced ejection fraction) (CMS/HCC V24, CMS/HCC V28) 05/23/2024 Overview (08/07/2024): Last Assessment & Plan: [...] follow a low-sodium diet. Assessment & Plan (04/28/2025 3:55 PM EDT): Appears to be hypervolemic during our exam today. Subsequently, we will increase her torsemide to 120mg . She will have blood work drawn on Monday. Encouraged to continue to follow a low-sodium diet and perform daily weights. Patient will reach out to our office with a weight gain of 2 pounds in 1 day or 5 pounds in 5 days accompanied by worsening peripheral edema, shortness of breath or abdominal distention. We discussed the potential of introducing metolazone for further diuresis. I instructed the patient to reach out to our office if she does not notice a decrease in her weight or an improvement in her symptoms by despite titration and diuretic therapy. She will continue on her current dose of metoprolol and losartan. Orders: Basic metabolic panel; Future Magnesium; Future B-type natriuretic peptide; Future Assessment & Plan (02/17/2025 12:02 PM EDT): She does appear to be mildly hypervolemic during our exam today. She is requesting to transition back to furosemide. Subsequently, we will go back to furosemide 120 mg for the next 3 days with a BMP to further evaluate kidney function and electrolytes. It is likely her baseline dose will have to at least 80 mg of furosemide kidneys can tolerate this. We again had the discussion regarding the importance of sodium restriction and the impact not following a low sodium diet will have on her edema and her breathing. Encouraged to continue to follow a low-sodium diet and perform daily weights. Patient will reach out to our office with a weight gain of 2 pounds in 1 day or 5 pounds in 5 days accompanied by worsening peripheral edema, shortness of breath or abdominal distention. Orders: Basic metabolic panel; Future furosemide (LASIX) 40 mg tablet; Take 3 tablets (120 mg total) by mouth 1 (one) time each day. Assessment & Plan (01/23/2025 2:17 PM EDT): [...] Encounters Date Type Department Care Team Description 07/17/2025 Telephone [facility] Cardiology [facility] [address] [place] [address] Jayla Medina NP 05/29/2025 Telephone [facility] [address] [place] [address] Genaro Baird MA 05/09/2025 Telephone [facility] [address] [place] [address] Genaro Baird MA 04/28/2025 3:10 PM EDT Office Visit [facility] [address] [place] [address] Jayla Medina NP HFrEF (heart failure with reduced ejection fraction) (CMS/HCC V24, CMS/HCC V28) (Primary Dx); Hypertension, unspecified type; Atrial flutter, unspecified type (CMS/HCC V24, CMS/HCC V28); Hyperlipidemia, unspecified hyperlipidemia type from Last 3 Months Surgical History Surgery Date Site/Laterality Comments CARDIOVERSION WITH HUSEYIN CHOLECYSTECTOMY NEPHRECTOMY Right KNEE ARTHROSCOPY Right Medical History Medical History Date Comments Obesity DX:Obesity Secondary hypercoagulable st ate [place] [place] DX:Secondary hypercoagulable state ([facility]) PMR (polymyalgia rheumatica) [place] [place] DX:PMR (polymyalgia rheumatica) ([facility]) DM2 (diabetes mellitus, type 2) [place] [place], [facility] [place] DX:DM2 (diabetes mellitus, t ype 2) ([facility]) Chronic heart failure with p reserved ejection fraction (HFpEF) [place] [place], [facility] [place] Paroxysmal atrial fibrillati on ([facility] [place], [facility] [place]) Hypercholesteremia Hypertension Social History Tobacco Use Types [...] for your loved ones. For example, child and adolescent psychiatrist or elderly care for an older adult? [...] Sign Reading Time Taken Comments Blood Pressure 144/70 04/28/2025 3:05 PM EDT Pulse 58 04/28/2025 3:05 PM EDT Temperature 36.5 C (97.7 F) 11/20/2024 9:45 AM EST Respiratory Rate 22 11/20/2024 9:45 AM EST Oxygen Saturation 97% 04/28/2025 3:05 PM EDT Inhaled Oxygen Concentration - - Weight 90.7 kg (200 lb) 04/28/2025 3:05 PM EDT Height 152.4 cm (5') 04/28/2025 3:05 PM EDT Body Mass Index 39.06 04/28/2025 3:05 PM EDT Plan of Treatment Health Maintenance Due Date Last Done Comments DTaP,Tdap,and Td Vaccines (1 - Tdap) 1966 Pneumococcal Vaccine: 50+ Years (1 of 2 - PCV) 1966 Zoster Vaccines (1 of 2) 1997 RSV Immunization Adult Patients (1 - 1-dose 75+ series) 2022 Cholesterol Screening (Lipid Panel) 10/16/2022 Hepatitis C Screening 10/16/2022 Medicare Annual Wellness Visit 10/16/2022 Osteoporosis Screening (Bone Density Screening) 10/16/2022 Depression Screening 11/13/2024 COVID-19 Vaccine ( season) 2025 11/01/2022, 03/16/2022, 12/16/2021, Additional history exists Influenza Vaccine (#1) 2025 08/27/2018 Social Influencers of Health Screening 11/17/2025 11/17/2024 Falls Risk Assessment 11/20/2025 11/20/2024 Hypertension/CHF/CAD Annual [...] age to complete this topic Meningococcal B Vaccine Aged Out No l onger eligible based on patient's age to complete this topic RSV Immunization Patients Under 20 months Aged Out No longer eligible based on patient's age to complete this topic Varicella Vaccines Aged Out No longer eligible based on patient's age to complete this topic Procedures Procedure Name Priority Date/Time Associated Diagnosis Comments EXTERNAL CLINICAL LAB Routine 05/23/2025 8:48 AM EDT EXTERNAL CLINICAL LAB Routine 05/02/2025 8:52 AM EDT BASIC METABOLIC PANEL Routine 11/20/2024 5:28 AM EST from Last 3 Months or Most Recently Relevant to Health Maintenance Results * External clinical lab (05/23/2025 8:48 AM EDT) Only the most recent of2 resultswithin the time period is included. us Historical Provider LAB BLOOD ORDERABLES Edit ed Result - Final * (ABNORMAL) Basic metabolic panel (11/20/2024 5:28 AM EST) Sodium 137 133 - 145 mmol/L LAB CHEMISTRY METHOD 11/20/2024 8:24 AM [facility] Potassium 3.8 3.5 - 5.5 mmol/L LAB CHEMISTRY METHOD 11/20/2024 8:24 AM [facility] Chloride 99 96 - 110 mmol/L LAB CHEMISTRY METHOD 11/20/2024 8:24 AM [facility] CO2 31 21 - 32 mmol/L LAB CHEMISTRY METHOD 11/20/2024 8:24 AM [facility] Anion Gap 7 3 - 11 LAB CHEMISTRY METHOD 11/20/2024 8:24 AM [facility] Glucose 189(H) 70 - 100 mg/dL LAB CHEMISTRY METHOD 11/20/2024 8:24 AM [facility] BUN 29(H) 5 - 25 mg/dL LAB CHEMISTRY METHOD 11/20/2024 8:24 AM [facility] Creatinine 1.29(H) 0.50 - 1.10 mg/dL LAB CHEMISTRY METHOD 11/20/2024 8:24 AM [facility] eGFR 43(L) >=60 mL/min/1. 73m2 LAB CHEMISTRY METHOD 11/20/2024 8:24 AM [facility] Comment:Calculation based on the Chronic Kidney Disease Epidemiology Collaboration (CKD-EPI) equation refit without adjustment for race. BUN/Creatinine Ratio 22.5 LAB CHEMISTRY METHOD 11/20/2024 8:24 AM EST [facility] Calcium 9.0 8.5 - 10.5 mg/dL LAB CHEMISTRY METHOD 11/20/2024 8:24 AM EST [facility] Blood Venous blood specimen / Unknown Venipuncture / Unknown 11/20/2024 5:28 AM EST 11/20/2024 7:30 AM EST [facility] [employer]AR[facility] LAB BLOOD ORDERABLES Final R esult [facility] ([facility]) [facility] [address] [place] [address], from Last 3 Months or Most Recently Relevant to Health Maintenance [facility] [phone] [employer] Advance Directives * Full [...] currently active code status orders. Care Teams Poultry Hatchery Manager Relationship Specialty Start Date End Date Eveline Douglass MD [address] [place] [address] [place] [address] (work) PCP - General 05/23/24
[2025-07-23 10:47] LABS: MANUAL DIFF FLAG NO
[2025-07-23 10:59] LABS: Hematocrit 32.8 % (37.0-47.0); Hemoglobin 10.2 g/dl (12.0-16.0); Imm Gran Abs Auto 0.02 X10*3/uL (0.00-0.03); Imm Gran Pct Auto 0.2 % (0.0-0.4); Lymphocytes Absolute Auto 2.1 X10*3/uL (1.2-4.9); Mean Corpuscular HGB Conc 31.1 g/dl (31.0-35.0); Mean Corpuscular Hemoglobin 25.4 pg (27.0-33.0); Mean Corpuscular Volume 81.6 fL (80.0-98.0); NRBC Abs Auto 0.000 X10*3/uL (0.0-0.012); NRBC Pct Auto 0.0 /100WBC (0.0-0.2); Platelet Count 471 X10*3/uL (160-400); Red Blood Count 4.02 X10*6/uL (4.20-5.50); White Blood Count 8.0 X10*3/uL (4.8-10.8)
[2025-07-23 11:04] LABS: Hemoglobin A1C 219.8644 umol/L; Total Hemoglobin (HGBA1C) 2693.9802 umol/L
[2025-07-23 11:33] LABS: Alanine Aminotransferase 7 U/L (0-31); Albumin Level 3.7 g/dL (3.5-5.0); Alkaline Phosphatase 130 U/L (39-117); Anion Gap 14 (12-20); Aspartate Amino Transferase 29 U/L (5-31); Blood Urea Nitrogen 45 mg/dL (9-16); Calcium 9.2 mg/dL (8.4-10.2); Carbon Dioxide 28 mmol/L (22-29); Chloride 104 mmol/L (96-108); Estimated Glomerular Filt Rate 26; Potassium 3.9 mmol/L (3.3-5.1); Sodium 142 mmol/L (135-145); Total Protein 7.2 g/dL (6.5-8.0)
== END 2025-07-23 07:33 | disposition home or self-care (01) ==
LOC: HO.HMGCLDS 07:32
PROVIDERS: PCP Internal Medicine; Referring Provider Internal Medicine; Visit Provider Internal Medicine
DX: E11.65 Type 2 diabetes mellitus with hyperglycemia (principal); E78.00 Pure hypercholesterolemia, unspecified; I48.91 Unspecified atrial fibrillation; R80.8 Other proteinuria; Z79.01 Long term (current) use of anticoagulants
CPT/HCPCS: 36415; 80053; 83036; 84443; 84481; 85025

== ENCOUNTER 2025-08-20 07:49 | Outpatient (AMB) | payer MEDICARE, SELFPAY ==
--- OUTSIDE RECORDS SUMMARY | 2025-08-20 07:52 | XMS_ITS | Clinical Summary ---
Author Organization [address] [place] [address] Address [address] [place] [address] Phone Care Team Providers Care Harvest Worker Name Role Phone Eveline Douglass MD Primary Care Provider [phone] Allergies No known active allergies Medications metoprolol tartrate (LOPRESSOR) 100 mg tablet Take 1 tablet (100 mg total) by mouth 2 (two) times a day. Active pravastatin (PRAVACHOL) 40 mg tablet Take 1 tablet (40 mg total) by mouth 1 (one) time each day. 4 Active predniSONE (DELTASONE) 1 mg tablet Take 3 Tablets by mouth daily. Take with 5 mg tablet for a total of 8 mg daily Active predniSONE (DELTASONE) 5 mg tablet Active insulin glargine,hum.rec. anlog (INSULIN GLARGINE SUBQ) Inject 12 Units into the skin at bedtime. Active losartan (Cozaar) 100 mg tabletIndications :Atrial fibrillation, unspecified type (CMS/HCC V24, CMS/HCC V28),Primary hypertension Take 1 tablet (100 mg total) by mouth 1 (one) time each day. 30 each 11 4 10/03/20 25 Active amLODIPine (NORVASC) 5 mg tablet Take 1 tablet (5 mg total) by mouth 1 (one) time each day. 30 each 5 Active insulin lispro 100 unit/mL injection Inject under the skin 3 (three) times a day before meals. -Administer within 15 minutes of a meal 12-18 U's sliding scale TID Active Eliquis 5 mg tabletIndications :Paroxysmal atrial fibrillation (CMS/[facility] V24, CMS/HCC V28),Unspecified systolic (congestive) heart failure (CMS/HCC V24, CMS/HCC V28) TAKE 1 TABLET BY MOUTH TWICE A DAY 60 tablet 6 5 Active torsemide (DEMADEX) 20 mg tablet Take 4 tablets (80 mg total) by mouth 1 (one) time each day. 120 each 5 5 Active amiodarone (PACERONE) 200 mg tabletIndications :Paroxysmal atrial fibrillation (CMS/[facility] V24, CMS/HCC V28),Unspecified systolic (congestive) heart failure (CMS/HCC V24, CMS/HCC V28) TAKE 1 TABLET BY MOUTH EVERY DAY 90 tablet 1 5 Active Active Problems Problem Noted Date Diagnosed Date Acute hypoxic respiratory fa ilure (CMS/[facility] V24, CMS/[facility] V28) 01/21/2025 Acute on chronic heart failu re with preserved ejection fraction (HFpEF) ([facility] V24, [facility] V28) 11/17/2024 Acute on chronic congestive heart failure, unspecified heart failure type (CMS/[facility] V24, CMS/[facility] V28) 11/17/2024 Atrial flutter ([facility] V24, [facility] V28) 2023 Assessment & Plan [...] heart failu re with preserved ejection fraction ([facility] V24, [facility] V28) 08/07/2024 A-fib (CMS/[facility] V24, CMS/[facility] V28) 05/23/2024 Overview (08/07/2024): Last Assessment & Plan: She continues to be anticoagulated on full dose Eliquis as her weight is greater than 60 kg and her age is less than 82. Her [id number] score is 6 for heart failure, hypertension, [...] metabolic panel; Future PVD (peripheral vascular disease) (CMS/HCC V24) 05/23/2024 Secondary hypercoagulable state (CMS/HCC V24) HLD (hyperlipidemia) 05/23/2024 Overview (08/07/2024): Last [...] (heart failure with re duced ejection fraction) ([facility] V24, [facility] V28) 05/23/2024 Overview (08/07/2024): Last [...] Type Department Care Team Description 07/17/2025 Telephone [facility] [place] [address] [place] [address] [facility] [address] [place] [address] Jayla Medina NP 05/29/2025 Telephone [facility] Cardiology [facility] [place] [address] [place] [address] [place] [address] Genaro Baird MA from Last 3 Months Surgical History Surgery Date Site/Laterality Comments CARDIOVERSION WITH HUSEYIN CHOLECYSTECTOMY NEPHRECTOMY Right KNEE ARTHROSCOPY Right Medical History Medical History Date Comments Obesity DX:Obesity Secondary hypercoagulable st ate ([facility]/HCC V24) DX:Secondary hypercoagulable state (HCC) PMR (polymyalgia rheumatica) ([facility]/HCC V24) DX:PMR (polymyalgia rheumatica) ([facility]) DM2 (diabetes mellitus, type 2) (CMS/HCC V24, CMS/HCC V28) DX:DM2 (diabetes mellitus, t ype 2) ([facility]) Chronic heart failure with p reserved ejection fraction (HFpEF) (CMS/HCC V24, CMS/HCC V28) Paroxysmal atrial fibrillati on (CMS/[facility] V24, CMS/[facility] V28) Hypercholesteremia Hypertension Social History Tobacco Use [...] for your loved ones. For example, child caregiver or elderly care for an older adult? [...] Date Recorded What is your living situation? Unrecognized valu e 11/17/2024 Interpersonal Safety Answer Date Record ed Physical Abuse Unrecognized value 11/17/2024 Verbal Abuse Unrecognized value 11/17/2024 Comments No Sex and Gender Information [...] Associated Diagnosis Comments EXTERNAL CLINICAL LAB Routine 07/23/2025 8:16 AM EDT EXTERNAL CLINICAL LAB Routine 05/23/2025 8:48 AM EDT BASIC METABOLIC PANEL Routine 11/20/2024 5:28 AM EST from Last 3 Months or Most Recently Relevant to Health Maintenance Results * External clinical lab (07/23/2025 8:16 AM EDT) Only the most recent of2 resultswithin the time period is included. us Historical Provider MD LAB BLOOD ORDERABLES Edit ed Result - Final * (ABNORMAL) Basic metabolic panel (11/20/2024 5:28 AM EST) Sodium 137 133 - 145 mmol/L LAB CHEMISTRY METHOD 11/20/2024 8:24 AM EST [facility] Potassium 3.8 3.5 - 5.5 mmol/L LAB CHEMISTRY METHOD 11/20/2024 8:24 AM EST [facility] Chloride 99 96 - 110 mmol/L LAB CHEMISTRY METHOD 11/20/2024 8:24 AM [facility] CO2 31 21 - 32 mmol/L LAB CHEMISTRY METHOD 11/20/2024 8:24 AM [facility] Anion Gap 7 3 - 11 LAB CHEMISTRY METHOD 11/20/2024 8:24 AM [facility] Glucose 189(H) 70 - 100 mg/dL LAB CHEMISTRY METHOD 11/20/2024 8:24 AM [facility] BUN 29(H) 5 - 25 mg/dL LAB CHEMISTRY METHOD 11/20/2024 8:24 AM [facility] Creatinine 1.29(H) 0.50 - 1.10 mg/dL LAB CHEMISTRY METHOD 11/20/2024 8:24 AM [facility] eGFR 43(L) >=60 mL/min/1. 73m2 LAB CHEMISTRY METHOD 11/20/2024 8:24 AM [facility] Comment:Calculation based on the Chronic Kidney Disease Epidemiology Collaboration (CKD-EPI) equation refit without adjustment for race. BUN/Creatinine Ratio 22.5 LAB CHEMISTRY METHOD 11/20/2024 8:24 AM [facility] Calcium 9.0 8.5 - 10.5 mg/dL LAB CHEMISTRY METHOD 11/20/2024 8:24 AM [facility] Blood Venous blood specimen / Unknown Venipuncture / Unknown 11/20/2024 5:28 AM EST 11/20/2024 7:30 AM EST us Estjosephine Prather MD LAB BLOOD ORDERABLES Final R esult [facility] [address] [place] [address], from Last 3 Months or Most Recently Relevant to Health Maintenance [place] [phone] [employer] Advance Directives * Full [...] currently active code status orders. Care Teams Harvest Worker Relationship Specialty Start Date End Date Eveline Douglass MD [address] [place] [address] [place] [address] PCP - General 05/23/24
--- NOTE | 2025-08-20 08:08 | A.OFFVIS_ITS ---
Vital Signs 08/20/25 08:14 Height 5 ft BMI Reason not done Patient refused/unable BP 134/80 Blood Pressure Location Rt brachial Position Sitting Pulse 53 Pulse Source Pulse Oximeter Pulse Oximetry (%) 96 Oxygen Delivery Method Room Air Intake Visit Reasons: PMR Intake Note: Patient presents for PMR follow up. Allergies iodine (Iodine) Allergy (Mild, Verified 08/20/25 08:12) HIVES metformin Adverse Reaction (Verified 08/20/25 08:12) Diarrhea Medication List - Last Reconciled 08/20/25 by Maureen Pan MD amlodipine 10 mg PO DAILY apixaban (Eliquis) 5 mg PO BID aspirin 81 mg PO DAILY blood sugar diagnostic ([employer] test strips) As directed glipizide 10 mg PO BID insulin lispro (Humalog KwikPen (U-100) Insulin) subcut losartan-hydrochlorothiazide 50-12.5 mg 1 tab PO DAILY metoprolol tartrate 100 mg PO BID pravastatin 40 mg PO DAILY prednisone 5 mg PO DAILY torsemide 80 mg PO DAILY HPI Comments Details: Patient is a 79-year-old female with hypertension complicated by coronary artery disease, diabetes, hyperlipidemia, paroxysmal AFib, polyarticular osteoarthritis and PMR here today for follow up Interval History: Patient last seen 10/16/[address] Palomares - On prednisone 5mg daily - She has been on prednisone 5 mg daily for the past 2 months or so. She states that she feels about the same overall. She has generalized joint pain and stiffness. Morning stiffness lasts hours. She takes 1300 mg of Tylenol 3 times a day. - Plan to decrease prednisone to 4mg and decrease by 1 mg every month Today - On prednisone 5mg daily - Unable to decrease prednisone due to joint pain in her knees and her shoulders - Does not take prednisone every day, states she sometimes will take it only 3-4 times per week - Denies shoulder stiffness, but notes decreased ROM of bilateral shoulders Rheumatologic History: Initial History by Thania Morel: Ms. Wilburn 78 yo F was referred by Ortho for evaluation of possible PMR. She has elevated ESR 66, CRP hs 10. Patient admits to shoulder and elbow pain, hand symptoms. But denies hip pain. She was active and able to do her ADLs prior to this onset 3 months ago. Bilateral shoulder, right worse, goes down to upper arm, can't lay down on side due to pain. Started last week of July 2023. Denies falls or inciting injuries. Limited ROM in upper extremities because of pain Describes hand joint pain. Needs both hands to hold a glass and difficulty opening bottles. denies numbness. Has had flare up like these before but would resolve spontaneously. Perhaps 3 times a year. History of DM, HTN, nephrectomy (congenital kidney disease per patient). She had prednisone recently but raised sugars high. Last blood sugar check at home was 170s. Uses walker now because of difficulty holding a cane with shoulder pain. Has been using cane for past 6 years. Family history of RA (mom)? Treatment done so far: tylenol meloxicam - no relief Patient denies symptoms of Temporal Arteritis and connective tissue Disease to include but not limited to headaches, altered vision at onset of the muscle pain, rashes, sun sensitivity and fatigue. She denies Raynaud's, joint swelling and redness. She has no concerns for chronic diarrhea, blood or mucus on stool. Current Rheumatology Medication(s): Prednisone 5mg daily [facility] Medical History Cataract Primary osteoarthritis involving multiple joints PMR (polymyalgia rheumatica) Diabetes mellitus Kidney disease HTN (hypertension) Hand pain Shoulder pain Surgical History History of right nephrectomy Hx of cholecystectomy Family History Father HTN (hypertension) Mother HTN (hypertension) Kidney disease Arthritis Other CVA (cerebral vascular accident) Throat cancer Social History Alcohol intake: never Patient Tobacco Use Status: Never used Tobacco Review of Systems Const Details: Review of Systems Constitutional: Denies fever, chills, weight loss ENT: Denies vision changes, eye pain or eye redness, dental caries, dry mouth GI: Denies nausea, vomiting, diarrhea, abdominal pain, change in BM Pulm: Denies SOB, CORTES, hemoptysis, wheezing Cards: Denies chest pain, palpitations Skin: Denies Raynaud's, rash, nail changes, photosensitivity, [employer]: Denies headaches, weakness, paresthesias, recurrent falls MSK: as per HPI All other systems reviewed and are unremarkable except noted above Physical Exam Exam Exam: Vital signs reviewed Physical Examination CONSTITUITIONAL Patient alert and cooperative. Well appearing and in no apparent painful distress MSK Hands * Right Hand: Able to make a fist. No swelling or tenderness to palpation of the MCPs, PIPs or DIPs. * Left Hand: Able to make a fist. No swelling or tenderness to palpation of the MCPs, PIPs or DIPs. * Herbedens and Bouchards nodes noted bilaterally Wrists * Right Wrist: Full ROM to flexion and extension. No swelling or TTP * Left Wrist: Full ROM to flexion and extension. No swelling or TTP Elbows * Right Elbow: Full ROM. No swelling or TTP. No TTP of the medial epicondyle. No TTP of the lateral epicondyle * Left Elbow: Full ROM. No swelling or TTP. No TTP of the medial epicondyle. No TTP of the lateral epicondyle Shoulders * Right shoulder: Decreased ROM. No swelling noted. TTP of the AC joint. No TTP of the subacromial bursa. No TTP of the posterior shoulder * Left shoulder: Decreased ROM. No swelling noted. TTP of the AC joint. No TTP of the subacromial bursa. No TTP of the posterior shoulder Knees * Right knee: Decreased ROM. No swelling noted. TTP of the knee joint line. No TTP of pes anserine bursa * Left knee: Decreased ROM. No swelling noted. TTP of the knee joint line. No TTP of pes anserine bursa. * Crepitations felt bilaterally Ankles * Right ankle: Good ankle dorsiflexion and plantar flexion. No swelling. No TTP of the ankle joint * Left ankle: Good ankle dorsiflexion and plantar flexion. No swelling. No TTP of the ankle joint Feet * Right foot: Negative squeeze test * Left foot: Negative squeeze test Tender points? * No tenderness to palpation of the bilateral trapezius, supraspinatus, anterior costochondral junctions, bilateral suboccipital muscle insertions SKIN No rashes Vital Signs: Last Vital Signs Pulse 53 08/20/25 08:14 BP 134/80 08/20/25 08:14 Pulse Ox 96 08/20/25 08:14 Oxygen Delivery Method Room Air 08/20/25 08:14 Office Procedures AMB Joint Injection/Aspiration Joint Injection/Aspiration Details: Procedure was explained to the patient and informed consent was obtained. ? Risks associated with the procedure were discussed with the patient including but not limited to bleeding, infection, drug reactions and reactions to the topical anesthetic. Patient made aware of signs to look out for infectious complications. The area of interest was identified and confirmed with patient. ?This was subsequently cleaned with chlorhexidine x 2. ? The area was then anesthetized using ethyl chloride spray. 30mg Ketorolac was injected without issue. ?Minimal to no bleeding. ?Patient tolerated procedure. Primary Site: left knee Prep: site was prepped using aseptic technique and ethochloride spray was applied Injected: other (30mg ketorolac ) Approach Used: anterior Procedure: The patient tolerated the procedure well Coding - Large joint Procedure code (CPT) selection complete AMB Joint Injection/Aspiration Joint Injection/Aspiration Details: Procedure was explained to the patient and informed consent was obtained. ? Risks associated with the procedure were discussed with the patient including but not limited to bleeding, infection, drug reactions and reactions to the topical anesthetic. Patient made aware of signs to look out for infectious complications. The area of interest was identified and confirmed with patient. ?This was subsequently cleaned with chlorhexidine x 2. ? The area was then anesthetized using ethyl chloride spray. 30mg Ketorolac was injected without issue. ?Minimal to no bleeding. ?Patient tolerated procedure. Primary Site: left shoulder Prep: site was prepped using aseptic technique and ethochloride spray was applied Injected: other (30mg Ketorolac) Procedure: The patient tolerated the procedure well Coding - Acromioclavicular Procedure code (CPT) selection complete Office Meds ketorolac 30 mg/mL injection solution Performing Provider: Maureen Pan MD Performing Location: [facility] Administered by: Giana Zavala RN on 08/20/25 09:11 Dose Route Admin Location Dispensed Lot Number Expiration Date [facility] Customer Support Agent 30 mg intra-articular left knee 1 mL [id number] 02/10/26 45070-134-73 Total Dispensed Waste 1 mL 0 % ketorolac 30 mg/mL injection solution Performing Provider: Maureen Pan MD Performing Location: [facility] Administered by: Giana Zavala RN on 08/20/25 09:11 Dose Route Admin Location Dispensed Lot Number Expiration Date [facility] Customer Support Agent 30 mg intra-articular left shoulder 1 mL [id number] 02/10/26 33311-96 3-01 Total Dispensed Waste 1 mL 0 % Results Reviewed Results Reviewed: Laboratory Tests 02/04/25 07/23/25 08/20/25 08:00 07:45 08:15 WBC RBC Hgb Hct Plt Count ESR 82 H Sodium 139 Potassium 4.3 Chloride 103 Carbon Dioxide 27 BUN 45 H 54 H Creatinine 1.87 H 2.17 H AST 15 ALT < 6 C-Reactive Protein 1.50 H 0.81 H 08/20/25 09:15 WBC 9.3 RBC 4.27 Hgb 10.7 L Hct 34.8 L Plt Count 522 H ESR 62 H Sodium Potassium Chloride Carbon Dioxide BUN Creatinine AST ALT C-Reactive Protein Laboratory Tests 10/11/23 11/17/23 11:00 07:51 Rheumatoid Factor < 13.0 Cycl Citrul Peptide IgG <16 TEMITOPE Screen POSITIVE A TEMITOPE Titer 1:40 H XR Bilateral Shoulders 09/2023 FINDINGS (Right): There is bony demineralization. The glenohumeral joint is intact and shows moderately severe osteoarthritic change. The acromioclavicular and coracoclavicular intervals are normal. There is mild to moderate osteoarthritic change of the acromioclavicular joint. No fracture or dislocation is seen. No soft tissue calcification or foreign body is noted. There is no right pneumothorax. IMPRESSION: There is moderately severe osteoarthritic change of the right glenohumeral joint, and mild to moderate osteoarthritic change is seen of the right acromioclavicular joint. FINDINGS (Left): There is bony demineralization. The glenohumeral joint is intact and shows marked osteoarthritic change. The acromioclavicular and coracoclavicular intervals are normal. No fracture or dislocation is seen. There are coarse atherosclerotic calcifications of the left rotator cuff insertion. No left pneumothorax is seen. IMPRESSION: 1. There is marked osteoarthritic change of the left glenohumeral joint, and mild osteoarthritic change is seen of the left clavicular joint. 2. There is marked calcific tendinitis of the left rotator cuff insertion. XR Bilateral Hands 09/2023 FINDINGS (Right): There is bony demineralization. There is mild osteoarthritic change of the third distal interphalangeal joint. There is mild osteoarthritic change of the first carpometacarpal joint. No fracture or dislocation is seen. There is no abnormal bone erosion. A 3 mm curvilinear calcification is seen in the soft tissues of the lateral wrist. No focal soft tissue swelling or gas is seen. IMPRESSION: 1. There is mild osteoarthritic change of the third distal interphalangeal joint and of the first carpometacarpal joint. 2. A 3 mm curvilinear calcification is seen in the soft tissues of the lateral wrist. FINDINGS (Left): There is bony demineralization. Bony alignment is normal. No fracture or dislocation is seen. There is very mild osteoarthritic change of the third and fourth distal interphalangeal joints. A small periarticular calcification is seen of the fourth distal interphalangeal joint. No fracture or dislocation is seen. A small sclerotic bone island is noted within the head of the proximal phalanx of the thumb. The proximal and distal carpal rows are intact. There is no focal soft tissue swelling, gas or foreign body. IMPRESSION: 1. There is no fracture or dislocation. 2. There is very mild osteoarthritic change of the left third and fourth distal interphalangeal joints. Assessment & Plan Assessment & Plan (1) PMR (polymyalgia rheumatica): Comment: dx 10/2023 Code(s): M35.3 - Polymyalgia rheumatica Category: Medical Plan: #PMR Patient is a 79-year-old female with PMR here today for follow up. Based her blood work and her exam I do not believe that she is fully in remission with respect to her PMR however given her uncontrolled diabetes, worsening kidney function, and overall comorbidities I do not think increasing her prednisone at this time would be ideal. I discussed starting Kevzara (methotrexate is contraindicated based on her kidney function) with the patient however patient declined as she states that she is already on too much medications. I informed her of the risks associated with continued steroid use including but not limited to worsening diabetes, worsening hypertension, cataracts, osteoporosis and thinning of the skin. Despite discussing these side effects she states that she has been taking prednisone for a long time and she would rather continue with this then start a new medication. I think for now we will try to do a slow taper. Her inflammatory markers are overall better than previous though they are not normal. We will decrease her prednisone to 4 mg over the next 4 months and follow up with blood work Plan - Decrease prednisone to 4mg daily - RTC 4 months - Labs before visit: CBC, CMP, ESR, CRP (2) Primary osteoarthritis involving multiple joints: Code(s): M15.9 - Polyosteoarthritis, unspecified Category: Medical Plan: #Polyarticular OA Patient with polyarticular osteoarthritis involving her shoulders as well as her knees. Status post Toradol injection to her knee and her left AC joint today. Relatively contraindicated for steroid use given her uncontrolled diabetes with A1c of greater than 9 (3) care home (current) use of systemic steroids: Code(s): Z79.52 - care home (current) use of systemic steroids Plan: #Long-term Use of Steroids Discussed with patient the risks and benefits of steroid for managing the rheumatic condition Benefits include: - Reduced pain, improved mobility, increased participation in activities, and decreased progression of disease Risks include: - GI upset, potential ultrasound worsening or formation (especially in patients > 65 years old), elevated blood pressure/worsening hypertension, elevated blood sugar/worsening diabetes control, worsening of bone density, elevated lipids/worsening triglycerides, cataract formation, weight gain Recommended using proton pump inhibitors (PPIs) for the duration of steroid use to reduce the risk of gastric ulcers and vitamin-D daily to reduce the risk of osteoporosis Labs checked: ?A1c, T spot, hepatitis-B and C serologies Pneumocystis jiroveci prophylaxis: ?Patient with risk factors including steroids greater than 50 mg for more than 30 days, age greater than 60 years, and lung involvement from underlying rheumatic disease requires prophylaxis and will be given so Plan I spent 35 minutes reviewing the record and labs, taking a history, examining the patient, discussing the treatment plan, ordering diagnostic work up and documenting in the medical record Orders: Orders C Reactive Protein Today Z79.899 - Other petroleum terminal plant operator (current) drug therapy Complete Blood Count Auto Diff Today Z79.899 - Other shelter (current) drug therapy Comprehensive Met. Panel Today Z79.899 - Other petroleum terminal plant operator (current) drug therapy Erythrocyte Sedimentation Rate Today Z79.899 - Other petroleum terminal plant operator (current) drug therapy AMB Joint Injection/Aspiration Today M15.9 - Polyosteoarthritis, unspecified AMB Joint Injection/Aspiration Today M15.9 - Polyosteoarthritis, unspecified Medications: New prednisone 4 mg (4 x 1 mg) PO DAILY 90 days 360 tabs 1RF M35.3 - Polymyalgia rheumatica Discontinued prednisone Discontinued Reason: Doctor's Order 5 mg PO DAILY 30 tabs 1RF M35.3 - Polymyalgia rheumatica Coding Level of Care Code Est Pt Level 4 (74733) Complex EM visit Add On G2211 Diagnoses PMR (polymyalgia rheumatica) M35.3 Primary osteoarthritis involving multiple joints M15.9 rn long term care (current) use of systemic steroids Z79.52 CPT Codes Coding - Joint 5: 15924 - Acromioclavicular ([id number]) Coding - 45508 Large joint: 69908 - Large joint ([id number])
[2025-08-20 08:14] VITALS: BP 134/80; PULSE 53; O2SAT 96
== END 2025-08-20 09:07 | disposition home or self-care (01) ==
LOC: HO.RHES 07:50
PROVIDERS: PCP Internal Medicine; Visit Provider Student in an Organized Health Care Education/Training Program
DX: M35.3 Polymyalgia rheumatica (principal); M17.12 Unilateral primary osteoarthritis, left knee; M19.012 Primary osteoarthritis, left shoulder; Z79.52 Long term (current) use of systemic steroids
CPT/HCPCS: 20605; 20610; 99214

== ENCOUNTER 2025-08-20 07:49 | Outpatient (REF) | payer MEDICARE, SELFPAY ==
[2025-08-20 13:25] LABS: MANUAL DIFF FLAG NO
[2025-08-20 13:45] LABS: Hematocrit 34.8 % (37.0-47.0); Hemoglobin 10.7 g/dl (12.0-16.0); Imm Gran Abs Auto 0.04 X10*3/uL (0.00-0.03); Imm Gran Pct Auto 0.4 % (0.0-0.4); Lymphocytes Absolute Auto 1.2 X10*3/uL (1.2-4.9); Mean Corpuscular HGB Conc 30.7 g/dl (31.0-35.0); Mean Corpuscular Hemoglobin 25.1 pg (27.0-33.0); Mean Corpuscular Volume 81.5 fL (80.0-98.0); NRBC Abs Auto 0.000 X10*3/uL (0.0-0.012); NRBC Pct Auto 0.0 /100WBC (0.0-0.2); Platelet Count 522 X10*3/uL (160-400); Red Blood Count 4.27 X10*6/uL (4.20-5.50); White Blood Count 9.3 X10*3/uL (4.8-10.8)
[2025-08-20 14:03] LABS: Alanine Aminotransferase < 6 U/L (0-31); Albumin Level 4.0 g/dL (3.5-5.0); Alkaline Phosphatase 146 U/L (39-117); Anion Gap 13 (12-20); Aspartate Amino Transferase 15 U/L (5-31); Blood Urea Nitrogen 54 mg/dL (9-16); Calcium 9.6 mg/dL (8.4-10.2); Carbon Dioxide 27 mmol/L (22-29); Chloride 103 mmol/L (96-108); Estimated Glomerular Filt Rate 22; Potassium 4.3 mmol/L (3.3-5.1); Sodium 139 mmol/L (135-145); Total Protein 7.6 g/dL (6.5-8.0)
== END 2025-08-20 07:50 | disposition home or self-care (01) ==
LOC: HO.HKASLDS 07:49
PROVIDERS: PCP Internal Medicine; Visit Provider Student in an Organized Health Care Education/Training Program
DX: M35.3 Polymyalgia rheumatica (principal); M15.9 Polyosteoarthritis, unspecified; Z79.52 Long term (current) use of systemic steroids; Z79.82 Long term (current) use of aspirin; Z79.899 Other long term (current) drug therapy
CPT/HCPCS: 20605; 20610; 36415; 80053; 85025; 85652; 86140; 99212; J1885